=== PATIENT | female | born 2000 | race Caucasian/White ===

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

== ENCOUNTER 2020-02-10 20:49 | Emergency (ER) | payer BC, MEDICAID ==
--- NOTE | 2020-02-10 21:41 | EDM.PDOC ---
ED HPI GENERAL MEDICAL PROBLEM - General Chief Complaint: General Stated Complaint: 18 WKS PG TAILBONE PAIN Time Seen by Provider: 02/10/20 21:09 Source of Information: Reports: Patient, RN Notes Reviewed History Limitations: Reports: No Limitations - History of Present Illness INITIAL COMMENTS - FREE TEXT/NARRATIVE: Patient is a 19 year old female who presents to the ED for the evaluation of tailbone pain. The patient states that she is 18 weeks , and is a . The patient states that she broke her tailbone over 4 years ago. The patient states that she developed pain in the same area a few days ago and it seems to be worsening, and not getting better. She has been using 500mg Tylenol Q6H with little relief. She denies any trauma or falls, and states that there is no pain that shoots down her legs. She is not having any abdominal cramping or vaginal bleeding and her is going well. The patient denies any other sick like symptoms. The patient states that the pain is so bad that she is having a hard time getting comfortable, and has not been sleeping well. She notes the pain to be sharp in nature and is there all the time, and worsens with any sort of pressure applied to the area. Sacral Pain Score (Numeric/FACES): 10 - Related Data Allergies Allergy/AdvReac Type Severity Reaction Status Date / Time No Known Allergies Allergy Verified 02/10/20 20:56 Home Meds: Home Meds . 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: : 1 Para: 0 Psychiatric History: Reports: Depression, Mood Swings Endocrine/Metabolic History: Reports: Obesity/BMI 30+ - Past Surgical History HEENT Surgical History: Reports: Oral Surgery Social & Family History - Tobacco Use Smoking Status *Q: Former Smoker Years of Tobacco use: 6 Used Tobacco, but Quit: Yes Month/Year Tobacco Last Used: 14 weeks ago - Caffeine Use Caffeine Use: Reports: Coffee - Recreational Drug Use Recreational Drug Use: No - Living Situation & Occupation Living situation: Reports: Single, Other (with friends) 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 ED EXAM, GENERAL - Physical Exam Exam: See Below Exam Limited By: No Limitations General Appearance: Alert, WD/WN, No Apparent Distress Eye Exam: Bilateral Eye: EOMI, Normal Inspection, PERRL Ears: Normal External Exam Nose: Normal Inspection Throat/Mouth: Normal Inspection, Normal Lips, Normal Teeth, Normal Gums, Normal Oropharynx, Normal Voice, No Airway Compromise Head: Atraumatic, Normocephalic Neck: Normal Inspection Respiratory/Chest: No Respiratory Distress, Lungs Clear, Normal Breath Sounds, No Accessory Muscle Use, Chest Non-Tender Cardiovascular: Normal Peripheral Pulses, Regular Rate, Rhythm, No Murmur Peripheral Pulses: 3+: Radial (L), Radial (R) GI/Abdominal: Normal Bowel Sounds, Soft, Non-Tender, No Distention, No Mass Back Exam: Other (tenderness over tailbone, pt is guarding at this time d/t pain ) Extremities: Normal Inspection, Normal Capillary Refill Neurological: Alert, Oriented, Normal Cognition, No Motor/Sensory Deficits Psychiatric: Normal Affect, Normal Mood Skin Exam: Warm, Dry, Intact, Normal Color, No Rash Course - Vital Signs Last Recorded V/S: Last Vital Signs Temp 98.2 F 02/10/20 20:59 Pulse 108 H 02/10/20 20:59 Resp 16 02/10/20 20:59 BP 121/82 02/10/20 20:59 Pulse Ox 98 02/10/20 20:59 - Re-Assessments/Exams Free Text/Narrative Re-Assessment/Exam: 02/10/20 21:43 Patient presents to the ED for her tailbone pain. I will provide the patient with a few tablets of hydrocodone/acetaminophen 5/325 through [facility] at this time. I did caution that the patient should try to take 500mg Tylenol every 6 hours, but if the pain is not relieved by this, then she should take the stronger medication. The patient understands this and will follow up with her OB tomorrow. Departure - Departure Time of Disposition: 21:45 Disposition: Home, Self-Care 01 Condition: Fair Clinical Impression: Acute coccygeal pain - Discharge Information *PRESCRIPTION DRUG MONITORING PROGRAM REVIEWED*: Yes *COPY OF PRESCRIPTION DRUG MONITORING REPORT IN PATIENT MOSES: No Instructions: Tailbone Injury, [id number] Referrals: Hermann Carvalho MD [Primary Care Provider] - Forms: ED Department Discharge Additional Instructions: You were evaluated in the ED today for your tailbone pain. You may take 500 mg Tylenol every 6 hours as needed for further pain relief. If this does not provide you pain relief, then you can take the hydrocodone/ acetaminophen as directed. You were given a prescription for a strong pain medication, hydrocodone/ acetaminophen 5/325, please take 1 tab every 6 hours as needed for pain not relieved by Tylenol alone. Please note this medication does contain Tylenol in it, so do not take more than 4000 mg in a 24-hour time span. These medications can be addictive, so please take as few as possible to achieve adequate pain control. These meds can also be quite constipating, recommend that you increase your oral fluid intake and take a stool softener like MiraLAX while taking these medications. Do not drive while taking this medication. Please continue to try and use a donut type pillow or other pillows for cushioning to help provide further pain relief. Recommend you call your FUR BLOWING MACHINE ATTENDANT and follow-up with them tomorrow for further consideration regarding the use of these medications in . Please return to the ER at any time if symptoms change or worsen. Sepsis Event Note - Evaluation Sepsis Screening Result: No Definite Risk - Focused Exam Vital Signs: Vital Signs Temp Pulse Resp BP Pulse Ox 02/10/20 20:59 98.2 F 108 H 16 121/82 98 Date Exam was Performed: 02/10/20 Time Exam was Performed: 21:48
== END 2020-02-10 22:05 | disposition home or self-care (01) ==
LOC: JD.ED 20:49
CPT/HCPCS: 99283

== ENCOUNTER 2020-02-12 05:48 | Emergency (ER) | payer BC ==
[2020-02-12 05:59] VITALS: BP 110/75; PULSE 110
--- NOTE | 2020-02-12 06:26 | EDM.PDOC ---
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 She was seen here yesterday for tail bone pain. She was given something for pain. She said the pain has been there a few days. She is 18 weeks , G 1 with a LNMP in September or October. She last saw her DEALER ACCOUNTS INVESTIGATOR Dr Carvalho 8 weeks ago. She had an US done at that time and there was no problems. She did not fall and hurt her tail bone. She said this morning she woke up with blood in her bed and she thinks it came from her rectum. She has no abdominal pain, nausea, vomiting. She has no fever, chills, cough, congestion, runny nose, chest pain or shortness of breath. She has no medical problems. She has no history of hemorrhoids. Onset: Gradual Duration: Day(s): Location: Reports: Other ([facility]) Quality: Reports: Sharp Severity: Moderate Improves with: Reports: Immobilization Worsens with: Reports: Movement Context: Denies: Trauma Associated Symptoms: Reports: No Other Symptoms Buttock Pain Score (Numeric/FACES): 10 - Related Data Allergies Allergy/AdvReac Type Severity Reaction Status Date / Time No Known Allergies Allergy Verified 02/12/20 05:56 Home Meds: Home Meds Hydrocodone/Acetaminophen [Hydrocodon-Acetaminophen 5-325] 1 each PO ASDIRECTED PRN 02/12/20 [History] Past Medical History - Past Health History Medical/Surgical History: Denies Medical/Surgical History 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: Psychiatric History: Reports: Depression, Mood Swings Endocrine/Metabolic History: Reports: Obesity/BMI 30+ - Past Surgical History HEENT Surgical History: Reports: Oral Surgery Social & Family History - Tobacco Use Smoking Status *Q: Former Smoker Used Tobacco, but Quit: Yes Month/Year Tobacco Last Used: 09/2019 - Caffeine Use Caffeine Use: Reports: Coffee - Recreational Drug Use Recreational Drug Use: No - Living Situation & Occupation Living situation: Reports: Single, Other (with friends) 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[employer]) ED ROS GENERAL - Review of Systems Review Of Systems: See Below Constitutional: Reports: No Symptoms HEENT: Reports: No Symptoms Respiratory: Reports: No Symptoms Cardiovascular: Reports: No Symptoms Endocrine: Reports: No Symptoms GI/Abdominal: Reports: Other (Tailbone pain) : Reports: No Symptoms Musculoskeletal: Reports: No Symptoms Skin: Reports: No Symptoms Neurological: Reports: No Symptoms ED EXAM, GI/ABD - Physical Exam Exam: See Below Exam Limited By: No Limitations General Appearance: Alert, No Apparent Distress Ears: Normal External Exam Nose: Normal Inspection Head: Atraumatic, Normocephalic Neck: Normal Inspection Respiratory/Chest: No Respiratory Distress, Lungs Clear, Normal Breath Sounds Cardiovascular: Regular Rate, Rhythm, No Edema, No Murmur GI/Abdominal Exam: Soft, Non-Tender, No Organomegaly, No Mass Rectal (Female) Exam: Normal Exam Back Exam: Normal Inspection Course - Vital Signs Last Recorded V/S: Last Vital Signs Temp 97.4 F 02/12/20 05:57 Pulse 110 H 02/12/20 05:57 Resp 19 02/12/20 05:57 BP 110/75 02/12/20 05:57 Pulse Ox 96 02/12/20 05:57 - Orders/Labs/Meds Labs: Laboratory Tests 02/12/20 02/12/20 Range/Units 06:26 06:26 WBC 14.38 H (3.98-10.04) K/mm3 RBC 3.95 L (3.98-5.22) M/mm3 Hgb 11.7 (11.2-15.7) gm/dl Hct 34.4 (34.1-44.9) % MCV 87.1 (79.4-94.8) fl MCH 29.6 (25.6-32.2) pg MCHC 34.0 (32.2-35.5) g/dl RDW Std Deviation 40.0 (36.4-46.3) fL Plt Count 268 (182-369) K/mm3 MPV 10.0 (9.4-12.3) fl Neut % (Auto) 76.7 H (34.0-71.1) % Lymph % (Auto) 15.9 L (19.3-51.7) % Randolph % (Auto) 5.6 (4.7-12.5) % Eos % (Auto) 1.4 (0.7-5.8) Baso % (Auto) 0.1 (0.1-1.2) % Neut # (Auto) 11.03 H (1.56-6.13) K/mm3 Lymph # (Auto) 2.29 (1.18-3.74) K/mm3 Randolph # (Auto) 0.81 H (0.24-0.36) K/mm3 Eos # (Auto) 0.20 (0.04-0.36) K/mm3 Baso # (Auto) 0.01 (0.01-0.08) K/mm3 Manual Slide Review Normal smear Blood Type A POSITIVE - Re-Assessments/Exams Free Text/Narrative Re-Assessment/Exam: 02/12/20 06:25 I ordered labs and an US of the baby. 02/12/20 07:37 Her WBC is 14.38. Her Hgb is negative. 02/12/20 07:38 She is A positive. 02/12/20 07:40 Her US shows single intrauterine fetus currently transverse in lie. 19 weeks and 1 day. FHT are 143. Low lying posterior placenta. No other complicating process is appreciated by US at this time. No etiology for bleeding is seen. I called the clinic and Dr Carvalho could see her at 10am today. I will send her over there. On rectal exam I did not see any fissure or hemorrhoids. Departure - Departure Time of Disposition: 08:00 Disposition: Home, Self-Care 01 Condition: Good Clinical Impression: Rectal bleeding, Rectal pain - Discharge Information *PRESCRIPTION DRUG MONITORING PROGRAM REVIEWED*: Not Applicable *COPY OF PRESCRIPTION DRUG MONITORING REPORT IN PATIENT MOSES: Not Applicable Referrals: Hermann Carvalho MD [Primary Care Provider] - 1 Day Forms: ED Department Discharge Additional Instructions: Follow up with Dr Carvalho today at 10am. They want your there at 9:45am to register. Sepsis Event Note - Evaluation Sepsis Screening Result: No Definite Risk - Focused Exam Vital Signs: Vital Signs Temp Pulse Resp BP Pulse Ox 02/12/20 05:57 97.4 F 110 H 19 110/75 96 Date Exam was Performed: 02/12/20 Time Exam was Performed: 07:40
--- NOTE | 2020-02-12 07:38 | US ---
Limited obstetrical ultrasound: Multiple real-time images were obtained transabdominally. Comparison: No prior obstetrical imaging for current . Dates: Current ultrasound: SELVIN 07/10/20, gestational age 18 weeks 5 days presentation: Transverse with head to maternal right side Placenta: Posterior with no findings of placenta previa or placental abruption, placenta is low lying within 1.4 cm from the internal cervical os Amniotic fluid: JAILYN 14.33 cm Measurements: BPD: 4.33 cm - 19 weeks 1 day Head circumference: 15.41 cm - 18 weeks 3 days Abdominal circumference: 12.79 cm - 18 weeks 3 days Femur length: 2.77 cm - 18 weeks 4 days Estimated weight: 240 g (0 lbs. 8 oz.), estimated weight is 29th percentile for age by current ultrasound Heart rate: 143 bpm Cervical length: 3.7 cm Impression: 1. Single intrauterine fetus currently transverse in lie. Dates as noted above. 2. Low lying posterior placenta. 3. No other complicating process is appreciated by ultrasound at this time. No etiology for bleeding is seen. Diagnostic code #3 Study was dictated in MDT
== END 2020-02-12 08:05 | disposition home or self-care (01) ==
LOC: JD.ED 05:48
DX: O99.611 Diseases of the digestive system complicating pregnancy, first trimester (principal); K62.5 Hemorrhage of anus and rectum; O99.211 Obesity complicating pregnancy, first trimester; Z87.891 Personal history of nicotine dependence; Z3A.19 19 weeks gestation of pregnancy
CPT/HCPCS: 36415; 76815; 76815-26; 85025; 86900; 86901; 99283; 99284-25

== ENCOUNTER 2020-02-13 06:48 | Day surgery (SDC) | payer BC ==
--- NOTE | 2020-02-13 07:42 | PCM.PREANE ---
Preanesthetic Assessment - Anesthesia/Transfusion/Family Hx Anesthesia History: Prior Anesthesia Without Reaction Family History of Anesthesia Reaction: No - Review of Systems General: No Symptoms Pulmonary: No Symptoms Cardiovascular: No Symptoms Gastrointestinal: No Symptoms Neurological: No Symptoms Other: Reports: None - Physical Assessment NPO Status Date: 02/12/20 NPO Status Time: 20:00 Vital Signs: 121/71, 95, RR 8, SpO2 97%, T 97.6 Height: 1.63 m Weight: 99.6 kg ASA Class: 2 Mental Status: Alert & Oriented x3 Airway Class: Mallampati = 3 Dentition: Reports: Partial (upper left front incisor partial) Thyro-Mental Finger Breadths: 3 Mouth Opening Finger Breadths: 3 ROM/Head Extension: Full Lungs: Clear to Auscultation, Normal Respiratory Effort Cardiovascular: Regular Rate, Regular Rhythm - Allergies Allergies/Adverse Reactions: Allergies Allergy/AdvReac Type Severity Reaction Status Date / Time No Known Allergies Allergy Verified 02/12/20 05:56 - Acknowledgements Anesthesia Type Planned: General Anesthesia, MAC Pt an Appropriate Candidate for the Planned Anesthesia: Yes Alternatives and Risks of Anesthesia Discussed w Pt/Guardian: Yes Pt/Guardian Understands and Agrees with Anesthesia Plan: Yes PreAnesthesia Questionnaire - Past Health History Medical/Surgical History: Denies 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
[2020-02-13] MEDS ORDERED: Lidocaine 1% 4 ML ONE (07:53)
[2020-02-13] MEDS ORDERED: Propofol 200 MG/20 ML SDV ONE ×2 (07:53→07:55)
[2020-02-13] MEDS ORDERED: fentaNYL 100 MCG/2 ML SDV ONE (07:53)
[2020-02-13] MEDS ORDERED: Lidocaine 1%/Sod Bicarbonate in NS 8.4% 1 ML Syringe IDERM ONE (07:59)
[2020-02-13] MEDS ORDERED: Lactated Ringers 1,000 ML IV SCH (08:00)
[2020-02-13] MEDS: Bupivacaine 0.5%/EPINEPHrine 1:200,000 50 ML MDV ONE ×2 (08:17→08:26)
[2020-02-13] MEDS ORDERED: Ondansetron 4 MG/2 ML SDV ONE (08:20)
--- NOTE | 2020-02-13 08:51 | PCM48HPAN ---
Post Anesthesia Note - EVALUATION WITHIN 48HRS OF ANESTHETIC Vital Signs in Normal Range: Yes Patient Participated in Evaluation: Yes Respiratory Function Stable: Yes Airway Patent: Yes Cardiovascular Function Stable: Yes Hydration Status Stable: Yes Pain Control Satisfactory: Yes Nausea and Vomiting Control Satisfactory: Yes Mental Status Recovered: Yes Vital Signs: Last Vital Signs Temp 98.2 F 02/13/20 08:42 Pulse 111 H 02/13/20 08:42 Resp 16 02/13/20 08:42 BP 114/57 L 02/13/20 08:42 Pulse Ox 95 02/13/20 08:42
--- NOTE | 2020-02-13 08:57 | PCM.PRNOTE ---
- Free Text/Narrative Note: Date: 02/13/2020 Operation: incision and drainage of pilonidal abscess Surgeon: Mitchel Lockett MD Findings: single opening at cleft along midline with purulent drainage. No significant hair collection noted within abscess cavity. Track was unroofed and cavity opened and curretted. Dilute phenol solution was applied to wound. Detailed Report: The patient was taken to the OR and placed prone. Time out was performed and monitored anesthesia care initiated. Once the patient was adequately sedated, the buttocks were splayed laterally using silk tape, providing good exposure. The gluteal cleft was prepped with iodine solution and drape in usual fashion. 30 cc 0.5% marcaine with epinephrine was injected at the area of concern. A lacrimal probe was inserted at the visible pit, which tracked anteriorly and superiorly to an abscess cavity. Skin and soft tissue were divided over the probe and the cavity was then visible. All tracts to the main cavity were unroofed. There was minimal pus and fine, short light colored hair at the skin along the incision. The tissue lining the wound was curretted, and hemostasis achieved with monopolar energy. Devitalized and fibrinous tissue was debrided. A dilute mix of phenol, ~10%, was placed in the wound and then dried up with gauze. The wound was packed with dry kerlix and dressed with ABD pad and tape. The patient tolerated the procedure well. Mitchel Lockett MD General Surgery
[2020-02-13 09:11] VITALS: BP 112/63; PULSE 90
[2020-02-13] MEDS ORDERED: Loratadine 10 MG Tab PO ONE (10:40)
== END 2020-02-13 09:44 | disposition home or self-care (01) ==
LOC: JD.SDS 06:48
PROVIDERS: ATTEND Surgery
DX: O99.712 Diseases of the skin and subcutaneous tissue complicating pregnancy, second trimester (principal); L05.01 Pilonidal cyst with abscess; O99.89 Other specified diseases and conditions complicating pregnancy, childbirth and the puerperium; R82.71 Bacteriuria; O99.332 Smoking (tobacco) complicating pregnancy, second trimester; F17.210 Nicotine dependence, cigarettes, uncomplicated; Z3A.19 19 weeks gestation of pregnancy
CPT/HCPCS: 10080; J2001; J2405; J2704; J3010; J3490; J7120

== ENCOUNTER 2020-02-19 11:34 | Emergency (ER) | payer BC, MEDICAID ==
[2020-02-19] MEDS ORDERED: HYDROmorphone 0.5 MG/0.5 ML Syringe IM ONE (12:03)
[2020-02-19] MEDS ORDERED: Lidocaine 2% Jelly 10 ML Urojet MUCMEM ONE (12:04)
--- NOTE | 2020-02-19 12:13 | EDM.PDOC ---
ED HPI GENERAL MEDICAL PROBLEM - General Chief Complaint: Wound Recheck Stated Complaint: POST SURGERY COMPLICATION Time Seen by Provider: 02/19/20 11:46 Source of Information: Reports: Patient, Old Records (surgical report), RN Notes Reviewed History Limitations: Reports: No Limitations - History of Present Illness INITIAL COMMENTS - FREE TEXT/NARRATIVE: Patient is a 19-year-old female who presents to the ED for wound management. Patient notes that she is 20 weeks . She states that she had a pilonidal cyst removed near her tailbone [address] Mitchel Lockett. The patient states that she is to do wound packing every 12 hours until the wound heals, and she went to remove the packing this morning, and it was painful , so she could not remove it. She tried to call the clinic and states that no one answered. She states that the pain management that she has is not working well. She denies any other sick like symptoms, no fever/chills, cough/SOB, chest discomfort. 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 Psychiatric History: Reports: Depression, Mood Swings Endocrine/Metabolic History: Reports: Obesity/BMI 30+ - Past Surgical History HEENT Surgical History: Reports: Oral Surgery Musculoskeletal Surgical History: Reports: Other (See Below) (pliondal cyst removal 02/13/20) Social & Family History - Tobacco Use Smoking Status *Q: Never Smoker - Caffeine Use Caffeine Use: Reports: Coffee - Recreational Drug Use Recreational Drug Use: No - Living Situation & Occupation Living situation: Reports: Single, Other (with friends) 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 ED EXAM, SKIN/RASH Exam: See Below Exam Limited By: No Limitations General Appearance: Alert, WD/WN, No Apparent Distress Respiratory/Chest: No Respiratory Distress, Lungs Clear, Normal Breath Sounds, No Accessory Muscle Use, Chest Non-Tender Cardiovascular: Normal Peripheral Pulses, Regular Rate, Rhythm, No Murmur GI/Abdominal: Normal Bowel Sounds, Soft, Non-Tender, No Distention, No Mass Back Exam: Normal Inspection, Full Range of Motion Extremities: Normal Inspection, Normal Capillary Refill Neurological: Alert, Oriented, Normal Cognition, No Motor/Sensory Deficits Psychiatric: Normal Affect, Normal Mood Skin: Warm, Dry, Normal Color, No Rash, Wound/Incision (healing surgical wound to superior gluteal cleft, wound packing in place. no surrounding erythema or foul smells or drainage.) Course - Vital Signs Last Recorded V/S: Last Vital Signs Temp 98.8 F 02/19/20 11:45 Pulse 100 02/19/20 11:45 Resp 16 02/19/20 11:45 BP 142/84 H 02/19/20 11:45 Pulse Ox 96 02/19/20 11:45 - Orders/Labs/Meds Orders: Active Orders 24 hr Category Date Time Status Wound Care [RC] ASDIRECTED Care 02/19/20 11:59 Active Meds: Medications Discontinued Medications Generic Name Dose Route Start Last Admin Trade Name Freq PRN Reason Stop Dose Admin Hydromorphone HCl 0.5 mg 02/19/20 12:03 Dilaudid IM 02/19/20 12:04 ONETIME ONE Lidocaine HCl 10 ml 02/19/20 12:04 02/19/20 12:13 Xylocaine 2% Jelly MUCMEM 02/19/20 12:05 10 ml ONETIME ONE Administration - Re-Assessments/Exams Free Text/Narrative Re-Assessment/Exam: 02/19/20 12:19 RN was able to remove the packing and she will re-pack the area as the patient had been directed. I will have her follow up with her surgeon for a re-check of the wound. Departure - Departure Time of Disposition: 12:20 Disposition: Home, Self-Care 01 Condition: Good Clinical Impression: Encounter for surgical wound dressing change - Discharge Information *PRESCRIPTION DRUG MONITORING PROGRAM REVIEWED*: No *COPY OF PRESCRIPTION DRUG MONITORING REPORT IN PATIENT MOSES: No Instructions: How to Change Your Wound Dressing, [id number] Referrals: Hermann Carvalho MD [Primary Care Provider] - Forms: ED Department Discharge Additional Instructions: You were seen in the ER today regarding your surgical wound dressing change. This was done by nursing staff, and you were given more supplies to continue doing this at home. Please continue to do so until told otherwise by your surgeon. Highly and strongly recommend that you follow-up with your surgeon, sometime later this afternoon or tomorrow for a possible recheck of the wound to make sure there is no obvious sign of infections. At today's visit the surrounding area was not reddened, or had any foul-looking drainage. Please return to the ER at any time if symptoms change or worsen. Sepsis Event Note - Evaluation Sepsis Screening Result: No Definite Risk - Focused Exam Vital Signs: Vital Signs Temp Pulse Resp BP Pulse Ox 02/19/20 11:45 98.8 F 100 16 142/84 H 96 Date Exam was Performed: 02/19/20 Time Exam was Performed: 12:15 - My Orders Last 24 Hours: My Active Orders 02/19/20 11:59 Wound Care [RC] ASDIRECTED - Assessment/Plan Last 24 Hours: My Active Orders 02/19/20 11:59 Wound Care [RC] ASDIRECTED
[2020-02-19 13:00] VITALS: BP 115/84; PULSE 130
== END 2020-02-19 12:35 | disposition home or self-care (01) ==
LOC: JD.ED 11:34
DX: Z48.817 Encounter for surgical aftercare following surgery on the skin and subcutaneous tissue (principal); O99.212 Obesity complicating pregnancy, second trimester; Z68.32 Body mass index [BMI] 32.0-32.9, adult; Z3A.20 20 weeks gestation of pregnancy
CPT/HCPCS: 99282; 99283

== ENCOUNTER 2020-07-08 15:47 | Inpatient (IN) | payer BC, MEDICAID ==
[2020-07-08] MEDS ORDERED: Sodium Chloride 0.9% 10 ML Syringe FLUSH PRN (20:03)
[2020-07-08] MEDS ORDERED: Ondansetron 4 MG/2 ML SDV IVPUSH PRN (20:03)
[2020-07-08] MEDS ORDERED: Nalbuphine 10 MG/ML Syringe IVPUSH PRN (20:03)
--- NOTE | 2020-07-08 20:03 | PCM.LDHP ---
<Mckenna Batista - Last Filed: 07/08/20 19:48> L&D History of Present Illness - General Date of Service: 07/08/20 Admit Problem/Dx: Patient Status Order with Admit Dx/Problem 07/08/20 15:56 Patient Status [ADT] Routine Admission Diagnosis/Problem Admission Diagnosis/Problem 07/08/20 19:48 Celina Crews is a 19 year old female who presents to Labor and Delivery with gestational hypertension. She is 39 weeks and 3 days gestational age with an SELVIN of 07/12/2020. 07/08/20 19:52 Source of Information: Patient History Limitations: Reports: No Limitations - History of Present Illness Introduction:: Celina Crews is a 19 year old female who presents to Labor and Delivery with gestational hypertension. She is 39 weeks and 3 days gestational age with an SELVIN of 07/12/2020. LMP was 10/08/2019. Patient states baby is active and moving. She denies any contractions, pain or pressure currently. Celina admits to recent hypertension in the last week of . She had a cyst removed on her lower back in February. She has otherwise had a normal . She denies headache, visual disturbances, tinnitus, congestion, sore throat, shortness of breath, chest pain, palpitations, nausea, vomiting, constipation, diarrhea, dysuria, anemia, depression or anxiety. 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 SELVIN of 07/12/2020 as determined by ultrasound on and supported by her LMP being 10/08/2019. Patient had menarche at 12. Cycles were regular with bleeding being heavy. She states she would have to change tampons every 2-3 hours. She has had no previous abnormal pap smears. course has been relatively unremarkable other than previously stated in HPI. She was seen early in at approximately 10 weeks gestation. She had irregular visits. She states she was unaware she should been seen at regular intervals throughout course. Weight gain was from 229 pounds to 252 pounds. Vital signs were stable up until last week of . Blood pressures ranged from 134/90 to 134/92 without features of preeclampsia. She was send to L&D to watch BP. Fundal height growth was appropriate throughout course. Patient had her diphtheria pertussis tetanus immunization on 05/03/2020. She plans to breast feed. She elected to have genetic testing done which came back for low risk of trisomy 13, 18 or 21. Group B strep screen was negative. She desires an epidural in labor. She is rubella immune. Influenza vaccine was administered on 12/17/2019. Laboratory testing showed blood to be A positive with a negative antibody screen. Hemoglobin is 13.1 g/dL and platelets are 340,000 during her initial labs. She is rubella immune. RPR was nonreactive. Gonorrhea and Chlamydia were negative. HIV and Hepatitis B surface antigen were both negative. Urine culture showed E. Coli and was treated appropriately. Second trimester labs showed a hemoglobin of 12.1 g/dL. Platelets were 296,000 and diabetic screen was within normal limits being 114. Group B strep was negative. Assessment/ Plan: Group B strep negative Patient desires epidural Patient plans to breast feed Rubella titers show immunity Anticipate normal spontaneous vaginal delivery Support breast feeding decision Epidural as needed Routine labor care orders will be placed. The procedure, risks and benefits were discussed and the patient and partner agreed to proceed. 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 She states that her exercise in was working. She states she maintained a healthy diet throughout . H&P Review of Systems - Review of Systems: Review Of Systems: See Below General: Denies: Fever, Chills, Night Sweats, Weight Loss HEENT: Denies: Headaches, Hearing Changes, Rhinitis, Post Nasal Drip, Sinus Congestion, Sore Throat Pulmonary: Denies: Shortness of Breath, Cough, Hemoptysis Cardiovascular: Denies: Chest Pain, Palpitations, Dyspnea on Exertion, Edema Gastrointestinal: Denies: Constipation, Diarrhea, Difficulty Swallowing, Nausea, Vomiting Genitourinary: Denies: Dysuria, Frequency, Burning, Pain, Urgency, Hematuria Musculoskeletal: Denies: Shoulder Pain, Arm Pain, Back Pain, Muscle Pain Skin: Denies: Pruritis, Rash, Lesions, Lumps Psychiatric: Denies: Depression, Anxiety, Agitation, Suicidal Ideation, Homicidal Ideation Neurological: Denies: Headache, Numbness, Paresthesia, Tingling, Tremors Hematologic/Lymphatic: Denies: Anemia, Easy Bleeding, Easy Bruising Immunologic: Denies: Environmental Allergy, Seasonal Allergy L&D Exam - Exam Exam: See Below - Vital Signs Vital Signs: Last Vital Signs Temp 97.4 F 07/08/20 15:56 Pulse 99 07/08/20 15:56 Resp 14 07/08/20 15:56 BP 132/94 H 07/08/20 15:56 Pulse Ox 98 07/08/20 15:56 Weight: 114.441 kg - OB Specific Movement: Active Heart Tones: Present - Exam General: Alert, Oriented, Mild Distress HEENT: Hearing Intact Neck: Supple, Trachea Midline Lungs: Clear to Auscultation, Normal Respiratory Effort Cardiovascular: Regular Rate, Regular Rhythm, Normal S1, Normal S2 GI/Abdominal Exam: Soft, Non-Tender, Other (Gravid) Extremities: Normal Range of Motion, Pedal Edema (mild. ) Skin: Warm, Dry, Intact Psychiatric: Alert - Patient Data Lab Results Last 24 hrs: Laboratory Results - last 24 hr 07/08/20 07/08/20 07/08/20 Range/Units 16:08 16:18 16:18 WBC 11.21 H (3.98-10.04) K/mm3 RBC 4.39 (3.98-5.22) M/mm3 Hgb 12.7 (11.2-15.7) gm/dl Hct 37.2 (34.1-44.9) % MCV 84.7 (79.4-94.8) fl MCH 28.9 (25.6-32.2) pg MCHC 34.1 (32.2-35.5) g/dl RDW Std Deviation 40.6 (36.4-46.3) fL Plt Count 324 (182-369) K/mm3 MPV 10.3 (9.4-12.3) fl Neut % (Auto) 71.6 H (34.0-71.1) % Lymph % (Auto) 21.9 (19.3-51.7) % Sully % (Auto) 5.7 (4.7-12.5) % Eos % (Auto) 0.6 L (0.7-5.8) Baso % (Auto) 0.1 (0.1-1.2) % Neut # (Auto) 8.03 H (1.56-6.13) K/mm3 Lymph # (Auto) 2.45 (1.18-3.74) K/mm3 Sully # (Auto) 0.64 H (0.24-0.36) K/mm3 Eos # (Auto) 0.07 (0.04-0.36) K/mm3 Baso # (Auto) 0.01 (0.01-0.08) K/mm3 Sodium 137 (136-145) mEq/L Potassium 4.0 (3.5-5.1) mEq/L Chloride 102 (98-107) mEq/L Carbon Dioxide 22 (21-32) mEq/L Anion Gap 17.0 H (5-15) BUN 9 (7-18) mg/dL Creatinine 1.0 (0.55-1.02) mg/dL Est Cr Clr Drug Dosing 78.14 mL/min Estimated GFR (MDRD) > 60 (>60) mL/min BUN/Creatinine Ratio 9.0 L (14-18) Glucose 72 L (74-106) mg/dL Calcium 8.8 (8.5-10.1) mg/dL Total Bilirubin 0.2 (0.2-1.0) mg/dL AST 18 (15-37) U/L ALT 16 (14-59) U/L Alkaline Phosphatase 108 (46-116) U/L Total Protein 7.4 (6.4-8.2) g/dl Albumin 3.0 L (3.4-5.0) g/dl Globulin 4.4 gm/dL Albumin/Globulin Ratio 0.7 L (1-2) Ur Random Creatinine 355.5 H (30.0-125.0) mg/dL U Random Total Protein 18.3 H (0.0-11.8) mg/dL Protein/Creatinin Ratio 51.5 (0-149) mg/g Result Diagrams: 07/08/20 16:18 07/08/20 16:18 Problem List Initiated/Reviewed/Updated: Yes Orders Last 24hrs: Active Orders 24 hr Category Date Time Status Patient Status [ADT] Routine ADT 07/08/20 15:56 Active Non Stress Test [RC] PER UNIT ROUTINE Care 07/08/20 15:56 Active Vital Signs [RC] PER UNIT ROUTINE Care 07/08/20 15:56 Active Regular Diet [DIET] Diet 07/08/20 Breakfast Active PROTEIN/CREATININE RATIO,URINE [URCHEM] Stat Lab 07/08/20 16:08 Ordered Resuscitation Status Routine Resus Stat 07/08/20 15:56 Ordered <Hermann Carvalho - Last Filed: 07/08/20 21:04> L&D History of Present Illness - General Admit Problem/Dx: Patient Status Order with Admit Dx/Problem 07/08/20 15:56 Patient Status [ADT] Routine 07/08/20 20:04 Patient Status [ADT] Routine Admission Diagnosis/Problem Admission Diagnosis/Problem Past Medical History Gastrointestinal History: Reports: Other (See Below) (Pilonidal cyst with incision and drainage on 03/04/2020) - Past Surgical History GI Surgical History: Reports: Other (See Below) (Incision and drainage of pilonidal cyst) L&D Exam - Vital Signs Vital Signs: Last Vital Signs Temp 36.3 C 07/08/20 15:56 Pulse 99 07/08/20 15:56 Resp 14 07/08/20 15:56 BP 132/94 H 07/08/20 15:56 Pulse Ox 98 07/08/20 15:56 - OB Specific Contraction Duration (sec): 0 Contraction Frequency (min): 0 Heart Tones per Min: 150 (+15 x 15 accelerations, one uncertain type of deceleration at 19:59) Heart Rate (FHR) Variability: Moderate (6-25 bmp) Presentation: Vertex Estimated Weight: 7.5 to 8 pounds by Oleksandr's - West Score West Score Cervix Position: Midposition West Score Consistency: Soft West Score Effacement: >80% (80%) West Score Dilation: 3-4 cm (3 cm) West Score Infant's Station: -3 West Score Total: 8 - Exam Genitourinary: Normal external exam, Other (18 Macedonian Chavez bulb placed and filled with 40 cc of sterile saline and came through the cervix with additional dilation of the cervix.) Psychiatric: Alert, Normal Affect, Normal Mood - Patient Data Lab Results Last 24 hrs: Laboratory Results - last 24 hr 07/08/20 07/08/20 07/08/20 Range/Units 16:08 16:18 16:18 WBC 11.21 H (3.98-10.04) K/mm3 RBC 4.39 (3.98-5.22) M/mm3 Hgb 12.7 (11.2-15.7) gm/dl Hct 37.2 (34.1-44.9) % MCV 84.7 (79.4-94.8) fl MCH 28.9 (25.6-32.2) pg MCHC 34.1 (32.2-35.5) g/dl RDW Std Deviation 40.6 (36.4-46.3) fL Plt Count 324 (182-369) K/mm3 MPV 10.3 (9.4-12.3) fl Neut % (Auto) 71.6 H (34.0-71.1) % Lymph % (Auto) 21.9 (19.3-51.7) % Sully % (Auto) 5.7 (4.7-12.5) % Eos % (Auto) 0.6 L (0.7-5.8) Baso % (Auto) 0.1 (0.1-1.2) % Neut # (Auto) 8.03 H (1.56-6.13) K/mm3 Lymph # (Auto) 2.45 (1.18-3.74) K/mm3 Sully # (Auto) 0.64 H (0.24-0.36) K/mm3 Eos # (Auto) 0.07 (0.04-0.36) K/mm3 Baso # (Auto) 0.01 (0.01-0.08) K/mm3 Sodium 137 (136-145) mEq/L Potassium 4.0 (3.5-5.1) mEq/L Chloride 102 (98-107) mEq/L Carbon Dioxide 22 (21-32) mEq/L Anion Gap 17.0 H (5-15) BUN 9 (7-18) mg/dL Creatinine 1.0 (0.55-1.02) mg/dL Est Cr Clr Drug Dosing 78.14 mL/min Estimated GFR (MDRD) > 60 (>60) mL/min BUN/Creatinine Ratio 9.0 L (14-18) Glucose 72 L (74-106) mg/dL Calcium 8.8 (8.5-10.1) mg/dL Total Bilirubin 0.2 (0.2-1.0) mg/dL AST 18 (15-37) U/L ALT 16 (14-59) U/L Alkaline Phosphatase 108 (46-116) U/L Total Protein 7.4 (6.4-8.2) g/dl Albumin 3.0 L (3.4-5.0) g/dl Globulin 4.4 gm/dL Albumin/Globulin Ratio 0.7 L (1-2) Ur Random Creatinine 355.5 H (30.0-125.0) mg/dL U Random Total Protein 18.3 H (0.0-11.8) mg/dL Protein/Creatinin Ratio 51.5 (0-149) mg/g Result Diagrams: 07/08/20 16:18 07/08/20 16:18 - Problem List (1) 39 weeks gestation of SNOMED Code(s): 83695621 ICD Code: Z3A.39 - 39 WEEKS GESTATION OF Status: Acute Current Visit: Yes (2) Gestational hypertension SNOMED Code(s): 798069095 ICD Code: O13.9 - GESTATIONAL HTN W/O SIGNIFICANT PROTEINURIA, UNSP TRIMESTER Status: Acute Current Visit: Yes Orders Last 24hrs: Active Orders 24 hr Category Date Time Status Patient Status [ADT] Routine ADT 07/08/20 20:04 Active Activity as Tolerated [RC] PFP Care 07/08/20 20:03 Active Communication Order [RC] ASDIRECTED Care 07/08/20 20:03 Active Non Stress Test [RC] PER UNIT ROUTINE Care 07/08/20 15:56 Active Notify Provider [RC] PFP Care 07/08/20 20:03 Active Notify Provider [RC] PRN Care 07/08/20 20:03 Active Peripheral IV Care [RC] . DIRECTED Care 07/08/20 20:04 Active Pump Management, Intrathecal [RC] ASDIRECTED Care 07/08/20 20:05 Active Vital Signs [RC] PER UNIT ROUTINE Care 07/08/20 15:56 Active Regular Diet [DIET] Diet 07/08/20 Breakfast Active BLOOD BANK HOLD SPECIMEN [BBK] Stat Lab 07/08/20 20:33 Received CORONAVIRUS COVID-19 RAPID [MOLEC] Stat Lab 07/08/20 20:33 Received PROTEIN/CREATININE RATIO,URINE [URCHEM] Stat Lab 07/08/20 16:08 Ordered RAPID PLASMA REAGIN,RPR [CHEM] Routine Lab 07/08/20 20:30 Received Lactated Ringers [Ringers, Lactated] 1,000 ml Med 07/08/20 20:15 Active IV ASDIRECTED Nalbuphine [Nubain] Med 07/08/20 20:03 Active 10 mg IVPUSH Q2H PRN Ondansetron [Zofran] Med 07/08/20 20:03 Active 4 mg IVPUSH Q4H PRN Oxytocin/Lactated Ringers [Pitocin in LR 10 Units/1,000 Med 07/08/20 20:15 Active ML] 10 unit in 1,000 ml IV TITRATE Sodium Chloride 0.9% [Saline Flush] Med 07/08/20 20:03 Active 10 ml FLUSH ASDIRECTED PRN Electronic Heart Tones Ext w TOCO [WOMSER] Oth 07/08/20 20:03 Ordered Routine Electronic Heart Tones Internal [WOMSER] Per Unit Oth 07/08/20 20:03 Ordered Routine Peripheral IV Insertion Adult [OM.PC] Routine Oth 07/08/20 20:03 Ordered Resuscitation Status Routine Resus Stat 07/08/20 15:56 Ordered Medication Orders Lactated Ringer's (Ringers, Lactated) 1,000 mls @ 100 mls/hr IV ASDIRECTED AVIS Oxytocin/Lactated Ringer's (Pitocin In Lr 10 Units/1,000 Ml) 10 unit in 1,000 mls @ 12 mls/hr IV TITRATE AVIS; Protocol Nalbuphine HCl (Nubain) 10 mg IVPUSH Q2H PRN PRN Reason: Pain Ondansetron HCl (Zofran) 4 mg IVPUSH Q4H PRN PRN Reason: Nausea/Vomiting Sodium Chloride (Saline Flush) 10 ml FLUSH ASDIRECTED PRN PRN Reason: Keep Vein Open Assessment/Plan Comment:: Celina Crews is a 19-year-old G1, P0 at 39 weeks 3 days (SELVIN 07/12/2020) who presents for induction of labor in the setting of gestational hypertension Refer to observation for medically indicated induction of labor with gestational hypertension Start Pitocin for induction of labor Continuous monitoring IV in place and have Lactated Ringer's at 125 ml/hr May have small amounts of regular diet Activity as tolerated May have epidural as desired Plans to breast-feed after delivery Continue close monitoring of her vitals for any severe features of preeclampsia or severe range blood pressures that may need treatment Anticipate vaginal delivery unless otherwise indicated I have seen and evaluated the patient with the PA student and agree with the note as above with changes noted. Hermann Carvalho MD 9:04 PM 07/08/2020
[2020-07-08] MEDS: Lactated Ringers 1,000 ML IV SCH (21:03)
[2020-07-08] MEDS: Oxytocin/Lactated Ringers 10 UNIT/1,000 ML BAG IV SCH (21:04)
[2020-07-09] MEDS ORDERED: Bupivacaine 0.25% 10 ML SDV ONE
[2020-07-09] MEDS ORDERED: ePHEDrine Sulfate/0.9% NaCl/Pf 25 MG/5 ML SYRINGE IV ONE
[2020-07-09] MEDS: Lactated Ringers 1,000 ML IV SCH ×5 (04:43→20:48)
[2020-07-09] MEDS ORDERED: fentaNYL 100 MCG/2 ML SDV EPIDUR PRN (06:24)
[2020-07-09] MEDS ORDERED: Ondansetron 4 MG/2 ML SDV IVPUSH PRN ×2 (06:24→21:54)
[2020-07-09] MEDS ORDERED: ePHEDrine 50 MG/ML SDV IVPUSH PRN ×2 (06:24→21:54)
--- NOTE | 2020-07-09 06:27 | PCM.PREANE ---
Preanesthetic Assessment - Procedure Proposed Procedure: Epidural - Anesthesia/Transfusion/Family Hx Anesthesia History: Prior Anesthesia Without Reaction Family History of Anesthesia Reaction: No Transfusion History: No Prior Transfusion(s) Intubation History: Unknown - Review of Systems General: No Symptoms Pulmonary: No Symptoms (Smoker:quit with 4-5 cig/day times 9 years.) Cardiovascular: No Symptoms (Gestational HTN) Gastrointestinal: No Symptoms Neurological: No Symptoms Other: Reports: Depression - Physical Assessment NPO Status Date: 07/09/20 NPO Status Time: 07:30 Vital Signs: Last Vital Signs Temp 36.3 C 07/08/20 15:56 Pulse 99 07/08/20 15:56 Resp 14 07/08/20 15:56 BP 132/94 H 07/08/20 15:56 Pulse Ox 98 07/08/20 15:56 Height: 1.63 m Weight: 114.305 kg ASA Class: 2 Mental Status: Alert & Oriented x3 Airway Class: Mallampati = 2 Dentition: Reports: Normal Dentition (multiple piercings noted: cheeks, lower lips, tongue/patient advised and educated on rationale of removing piercings to avoid potential kaiser in the event a is warranted.), Implants (left front movable tooth), Caries Thyro-Mental Finger Breadths: 3 Mouth Opening Finger Breadths: 3 ROM/Head Extension: Full Lungs: Clear to Auscultation, Normal Respiratory Effort Cardiovascular: Regular Rate, Regular Rhythm, No Murmurs - Lab Values: Laboratory Last Values WBC 11.21 K/mm3 (3.98-10.04) H 07/08/20 16:18 RBC 4.39 M/mm3 (3.98-5.22) 07/08/20 16:18 Hgb 12.7 gm/dl (11.2-15.7) 07/08/20 16:18 Hct 37.2 % (34.1-44.9) 07/08/20 16:18 MCV 84.7 fl (79.4-94.8) 07/08/20 16:18 MCH 28.9 pg (25.6-32.2) 07/08/20 16:18 MCHC 34.1 g/dl (32.2-35.5) 07/08/20 16:18 RDW Std Deviation 40.6 fL (36.4-46.3) 07/08/20 16:18 Plt Count 324 K/mm3 (182-369) 07/08/20 16:18 MPV 10.3 fl (9.4-12.3) 07/08/20 16:18 Neut % (Auto) 71.6 % (34.0-71.1) H 07/08/20 16:18 Lymph % (Auto) 21.9 % (19.3-51.7) 07/08/20 16:18 Curry % (Auto) 5.7 % (4.7-12.5) 07/08/20 16:18 Eos % (Auto) 0.6 (0.7-5.8) L 07/08/20 16:18 Baso % (Auto) 0.1 % (0.1-1.2) 07/08/20 16:18 Neut # (Auto) 8.03 K/mm3 (1.56-6.13) H 07/08/20 16:18 Lymph # (Auto) 2.45 K/mm3 (1.18-3.74) 07/08/20 16:18 Curry # (Auto) 0.64 K/mm3 (0.24-0.36) H 07/08/20 16:18 Eos # (Auto) 0.07 K/mm3 (0.04-0.36) 07/08/20 16:18 Baso # (Auto) 0.01 K/mm3 (0.01-0.08) 07/08/20 16:18 Sodium 137 mEq/L (136-145) 07/08/20 16:18 Potassium 4.0 mEq/L (3.5-5.1) 07/08/20 16:18 Chloride 102 mEq/L (98-107) 07/08/20 16:18 Carbon Dioxide 22 mEq/L (21-32) 07/08/20 16:18 Anion Gap 17.0 (5-15) H 07/08/20 16:18 BUN 9 mg/dL (7-18) 07/08/20 16:18 Creatinine 1.0 mg/dL (0.55-1.02) 07/08/20 16:18 Est Cr Clr Drug Dosing 78.14 mL/min 07/08/20 16:18 Estimated GFR (MDRD) > 60 mL/min (>60) 07/08/20 16:18 BUN/Creatinine Ratio 9.0 (14-18) L 07/08/20 16:18 Glucose 72 mg/dL (74-106) L 07/08/20 16:18 Calcium 8.8 mg/dL (8.5-10.1) 07/08/20 16:18 Total Bilirubin 0.2 mg/dL (0.2-1.0) 07/08/20 16:18 AST 18 U/L (15-37) 07/08/20 16:18 ALT 16 U/L (14-59) 07/08/20 16:18 Alkaline Phosphatase 108 U/L (46-116) 07/08/20 16:18 Total Protein 7.4 g/dl (6.4-8.2) 07/08/20 16:18 Albumin 3.0 g/dl (3.4-5.0) L 07/08/20 16:18 Globulin 4.4 gm/dL 07/08/20 16:18 Albumin/Globulin Ratio 0.7 (1-2) L 07/08/20 16:18 Ur Random Creatinine 355.5 mg/dL (30.0-125.0) H 07/08/20 16:08 U Random Total Protein 18.3 mg/dL (0.0-11.8) H 07/08/20 16:08 Protein/Creatinin Ratio 51.5 mg/g (0-149) 07/08/20 16:08 RPR Non-reactive (NONREACTIVE) 07/08/20 20:30 COVID-19 (ALEXX) Negative (NEGATIVE) 07/08/20 20:33 Above labs reviewed and noted and within acceptable ranges to proceed with epidural if desired. - Allergies Allergies/Adverse Reactions: Allergies Allergy/AdvReac Type Severity Reaction Status Date / Time No Known Allergies Allergy Verified 07/08/20 15:56 - Anesthesia Plan Pre-Op Medication Ordered: None - Acknowledgements Anesthesia Type Planned: Epidural Pt an Appropriate Candidate for the Planned Anesthesia: Yes Alternatives and Risks of Anesthesia Discussed w Pt/Guardian: Yes Pt/Guardian Understands and Agrees with Anesthesia Plan: Yes PreAnesthesia Questionnaire - Past Health History Medical/Surgical History: Denies Medical/Surgical History Gastrointestinal History: Reports: Other (See Below) (Pilonidal cyst with incision and drainage on 03/04/2020) 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: Psychiatric History: Reports: Depression, Mood Swings Endocrine/Metabolic History: Reports: Obesity/BMI 30+ - Past Surgical History GI Surgical History: Reports: Other (See Below) (Incision and drainage of pilonidal cyst) - SUBSTANCE USE Smoking Status *Q: Former Smoker Tobacco Use Within Last Twelve Months: Cigarettes Recreational Drug Use History: No - HOME MEDS Home Medications: Home Meds Mv-Mn/Iron/FA/Herbal/Digestive [ One Tablet] 1 each PO DAILY 07/08/20 [History] - CURRENT (IN HOUSE) MEDS Current Meds: Current Medications Ephedrine Sulfate (Ephedrine Sulfate) 5 mg IVPUSH ASDIRECTED PRN PRN Reason: Hypotension Fentanyl (Sublimaze) 100 mcg EPIDUR Q3H PRN PRN Reason: Pain Fentanyl/Bupivacaine HCl (Fentanyl/Bupivacaine/Ns 2 Mcg-0.125% 100 Ml) 100 ml EPIDUR ASDIRECTED AVIS Lactated Ringer's (Ringers, Lactated) 1,000 mls @ 100 mls/hr IV ASDIRECTED AVIS Last Admin: 07/09/20 04:43 Dose: 100 mls/hr Documented by: Oxytocin/Lactated Ringer's (Pitocin In Lr 10 Units/1,000 Ml) 10 unit in 1,000 mls @ 12 mls/hr IV TITRATE AVIS; Protocol Last Admin: 07/08/20 21:04 Dose: 2 munits/min, 12 mls/hr Documented by: Phenylephrine HCl 1 mg/ Sodium (Chloride) 10.1 mls @ 1 mls/sec IV TITRATE AVIS; Protocol Nalbuphine HCl (Nubain) 10 mg IVPUSH Q2H PRN PRN Reason: Pain Ondansetron HCl (Zofran) 4 mg IVPUSH Q4H PRN PRN Reason: Nausea/Vomiting Ondansetron HCl (Zofran) 4 mg IVPUSH ONETIME PRN PRN Reason: Nausea/Vomiting Sodium Chloride (Saline Flush) 10 ml FLUSH ASDIRECTED PRN PRN Reason: Keep Vein Open
[2020-07-09] MEDS ORDERED: Phenylephrine 1 MG in Sodium Chloride 0.9% 10 ML IV SCH ×2 (06:30→22:00)
--- NOTE | 2020-07-09 07:29 | PCM.PNLD ---
Labor Progress Note - VS & Meds Vital Signs: Last Vital Signs Temp 36.3 C 07/08/20 15:56 Pulse 99 07/08/20 15:56 Resp 14 07/08/20 15:56 BP 132/94 H 07/08/20 15:56 Pulse Ox 98 07/08/20 15:56 Active Medications: Current Medications Ephedrine Sulfate (Ephedrine Sulfate) 5 mg IVPUSH ASDIRECTED PRN PRN Reason: Hypotension Fentanyl (Sublimaze) 100 mcg EPIDUR Q3H PRN PRN Reason: Pain Fentanyl/Bupivacaine HCl (Fentanyl/Bupivacaine/Ns 2 Mcg-0.125% 100 Ml) 100 ml EPIDUR ASDIRECTED AVIS Lactated Ringer's (Ringers, Lactated) 1,000 mls @ 100 mls/hr IV ASDIRECTED AVIS Last Admin: 07/09/20 04:43 Dose: 100 mls/hr Documented by: Oxytocin/Lactated Ringer's (Pitocin In Lr 10 Units/1,000 Ml) 10 unit in 1,000 mls @ 12 mls/hr IV TITRATE AVIS; Protocol Last Admin: 07/08/20 21:04 Dose: 2 munits/min, 12 mls/hr Documented by: Phenylephrine HCl 1 mg/ Sodium (Chloride) 10.1 mls @ 1 mls/sec IV TITRATE AVIS; Protocol Nalbuphine HCl (Nubain) 10 mg IVPUSH Q2H PRN PRN Reason: Pain Ondansetron HCl (Zofran) 4 mg IVPUSH Q4H PRN PRN Reason: Nausea/Vomiting Ondansetron HCl (Zofran) 4 mg IVPUSH ONETIME PRN PRN Reason: Nausea/Vomiting Sodium Chloride (Saline Flush) 10 ml FLUSH ASDIRECTED PRN PRN Reason: Keep Vein Open - Uterine Contractions Uterine Monitoring Mode: External [place] Contraction Frequency (min): 1-6 Contraction Duration (sec): 45-60 Contraction Intensity: Mild to Moderate Uterine Resting Tone: Soft - Monitoring Monitor Mode: Doppler/Auscultation Heart Rate (FHR) Baseline: 145 Heart Rate (FHR) Per Doppler: 145 Heart Rate (FHR) Variability: Moderate (6-25 bmp) Accelerations: Present, 15x15 Decelerations: None Strip Review: Category I - Vaginal Exam Dilation (cm): 5 Effacement (Percent): 80 Station: -2 Cervical Position: Anterior Sterile Vaginal Exam Performed By: Hermann Carvalho Vaginal Exam Comment: Artificial rupture of membranes performed with sterile vaginal exam with [place] with return of small amount of clear fluid. - Labor Progress (Free Text) Labor Progress: Patient with progress in dilation overnight. Artificial rupture of membranes with return of clear fluid Patient continues to have mild range blood pressures Patient with one severe range blood pressure overnight but nurse notes that patient was laying on cuff Continue routine vitals Continuous monitoring Anticipate vaginal delivery unless otherwise indicated Hermann Carvalho MD 7:36 AM 07/09/2020
[2020-07-09] MEDS: Bupivacaine/fentaNYL/NS 100 ML Bag EPIDUR SCH ×2 (07:34→18:37)
[2020-07-09] MEDS: Oxytocin/Lactated Ringers 10 UNIT/1,000 ML BAG IV SCH (14:34)
[2020-07-09] MEDS ORDERED: Azithromycin 500 MG in Sodium Chloride 0.9% 250 ML IV ONE (21:32)
[2020-07-09] MEDS ORDERED: Metoclopramide 10 MG/2 ML SDV IVPUSH ONE (21:32)
[2020-07-09] MEDS ORDERED: Citric Acid/Sodium Citrate Solution 30 ML Cup PO ONE (21:33)
[2020-07-09] MEDS ORDERED: ceFAZolin 2 GM in Premix Bag 1 BAG IV ONE (21:40)
[2020-07-09] MEDS ORDERED: Sodium Chloride 0.9% 10 ML Syringe FLUSH PRN (21:40)
--- NOTE | 2020-07-09 21:47 | PCM.PNLD ---
Labor Progress Note - VS & Meds Vital Signs: Last Vital Signs Temp 36.3 C 07/08/20 15:56 Pulse 99 07/08/20 15:56 Resp 14 07/08/20 15:56 BP 132/94 H 07/08/20 15:56 Pulse Ox 98 07/08/20 15:56 Active Medications: Current Medications Ephedrine Sulfate (Ephedrine Sulfate) 5 mg IVPUSH ASDIRECTED PRN PRN Reason: Hypotension Fentanyl (Sublimaze) 100 mcg EPIDUR Q3H PRN PRN Reason: Pain Last Admin: 07/09/20 07:33 Dose: 100 mcg Documented by: Fentanyl/Bupivacaine HCl (Fentanyl/Bupivacaine/Ns 2 Mcg-0.125% 100 Ml) 100 ml EPIDUR ASDIRECTED AVIS Last Admin: 07/09/20 18:37 Dose: 100 ml Documented by: Lactated Ringer's (Ringers, Lactated) 1,000 mls @ 100 mls/hr IV ASDIRECTED AVIS Last Admin: 07/09/20 20:48 Dose: 150 mls/hr Documented by: Oxytocin/Lactated Ringer's (Pitocin In Lr 10 Units/1,000 Ml) 10 unit in 1,000 mls @ 12 mls/hr IV TITRATE AVIS; Protocol Last Titration: 07/09/20 19:40 Dose: 20 munits/min, 120 mls/hr Documented by: Phenylephrine HCl 1 mg/ Sodium (Chloride) 10.1 mls @ 1 mls/sec IV TITRATE AVIS; Protocol Azithromycin 500 mg/ Sodium (Chloride) 250 mls @ 250 mls/hr IV ONETIME ONE Stop: 07/09/20 22:31 Nalbuphine HCl (Nubain) 10 mg IVPUSH Q2H PRN PRN Reason: Pain Ondansetron HCl (Zofran) 4 mg IVPUSH Q4H PRN PRN Reason: Nausea/Vomiting Ondansetron HCl (Zofran) 4 mg IVPUSH ONETIME PRN PRN Reason: Nausea/Vomiting Sodium Chloride (Saline Flush) 10 ml FLUSH ASDIRECTED PRN PRN Reason: Keep Vein Open Discontinued Medications Citric Acid/Sodium Citrate (Bicitra Solution) 30 ml PO ONETIME ONE Stop: 07/09/20 21:34 Metoclopramide HCl (Reglan) 10 mg IVPUSH ONETIME ONE Stop: 07/09/20 21:33 - Uterine Contractions Uterine Monitoring Mode: External [place] Contraction Frequency (min): 1-3 Contraction Duration (sec): 45-60 Contraction Intensity: Moderate to Strong Uterine Resting Tone: Soft - Monitoring Monitor Mode: Doppler/Auscultation Heart Rate (FHR) Baseline: 145 Heart Rate (FHR) Per Doppler: 145 Heart Rate (FHR) Variability: Moderate (6-25 bmp) Accelerations: Present, 15x15 Decelerations: None Strip Review: Category I - Vaginal Exam Dilation (cm): 5 Effacement (Percent): 90 Station: -1 Cervical Position: Anterior Sterile Vaginal Exam Performed By: Hermann Carvalho - Labor Progress (Free Text) Labor Progress: Celina Crews is a 19-year-old G1, P0 at 39 weeks 4 days who has been undergoing medically indicated induction of labor for gestational hypertension with no progress throughout the day today despite augmentation of labor with Pitocin and rupture membranes for greater than 12 hours. Her cervix has stayed unchanged at approximately 5 cm throughout the entirety of the day. Patient was counseled on options including placement of intrauterine pressure catheter to monitor her strength of the contractions more closely and increasing rate of the Pitocin to 30 milliunits/min versus section. Patient states that due to her discomfort and concern that the ongoing induction would not be successful she desires to proceed with primary section. Patient was counseled on the risks and benefits of a primary section versus ongoing induction and she states that she would like to proceed with the section. Consents were signed at the bedside. Patient prepped for section Patient to receive Ancef 2 g IV and azithromycin 500 mg IV for antibiotic prophylaxis. Azithromycin is being added secondary to unanticipated section with previous rupture membranes Continue IV fluids Patient with epidural in place and we will try to use this for anesthesia Continuous monitoring until patient goes back for surgery Plan for primary section Hermann Carvalho MD 9:47 PM 07/09/2020
[2020-07-09] MEDS ORDERED: Bupivacaine 0.5% 30 ML SDV ONE (21:49)
[2020-07-09] MEDS ORDERED: Oxytocin 10 Units/1 ML SDV ONE ×4 (21:50→22:49)
[2020-07-09] MEDS ORDERED: Ondansetron 4 MG/2 ML SDV ONE (21:50)
[2020-07-09] MEDS ORDERED: ceFAZolin 1 GM Vial ONE (21:50)
[2020-07-09] MEDS ORDERED: Morphine PF 1 MG/ML Amp ONE ×2 (21:50→21:51)
[2020-07-09] MEDS ORDERED: Lidocaine 2% with EPINEPHrine 1:200,000 20 ML SDV ONE (21:50)
[2020-07-09] MEDS ORDERED: Ketorolac 30 MG/ML SDV ONE (21:50)
[2020-07-09] MEDS ORDERED: fentaNYL 100 MCG/2 ML SDV ONE (21:50)
[2020-07-09] MEDS ORDERED: Lactated Ringers 2,000 ML ONE (21:50)
[2020-07-09] MEDS ORDERED: fentaNYL 100 MCG/2 ML SDV IVPUSH PRN (21:54)
[2020-07-09] MEDS ORDERED: HYDROmorphone 0.5 MG/0.5 ML Syringe IVPUSH PRN (21:54)
[2020-07-09] MEDS ORDERED: diphenhydrAMINE 50 MG/ML SDV IVPUSH PRN (21:54)
[2020-07-09] MEDS ORDERED: Midazolam 1 MG/ML 2 ML SDV ONE (22:01)
[2020-07-09] MEDS ORDERED: Meperidine 50 MG/ML Vial ONE (22:39)
--- NOTE | 2020-07-09 23:18 | PCM.POSTAN ---
POST ANESTHESIA ASSESSMENT - MENTAL STATUS Mental Status: Alert - VITAL SIGNS Vital Signs: Last Vital Signs Temp 98 07/08/202309 Pulse 117 07/08/200 Resp 15 07/08/202309 BP 131/84 07/08/202309 Pulse Ox 96 07/08/202309 - RESPIRATORY Respiratory Status: Respiratory Rate WNL, Airway Patent, O2 Saturation Stable - CARDIOVASCULAR CV Status: Pulse Rate WNL, Blood Pressure Stable - GASTROINTESTINAL GI Status: No Symptoms - POST OP HYDRATION Hydration Status: Adequate & Stable
--- NOTE | 2020-07-09 23:43 | PCM.OPNOTE ---
- General Post-Op/Procedure Note Date of Surgery/Procedure: 07/09/20 Operative Procedure(s): Primary section with vacuum extractor delivery Findings: Live female delivered in vertex presentation at 2232. weight of 3490 g (7 pounds 11.1 ounces). Apgars of 2 and 7. Arterial cord blood gas with pH of 7.10 and PCO2 of 86.0 mmHg. Base deficit was -7.6. Venous cord blood gas had a pH of 7.30 and the base deficit was -2.6. Grossly normal-appearing uterus, bilateral fallopian tubes and ovaries. Pre Op Diagnosis: Arrest of dilation at 5 cm, gestational hypertension and patient desire for section Post-Op Diagnosis: Same Anesthesia Technique: Epidural Primary Surgeon: Hermann Carvalho Anesthesia Provider: Aditi Salvador Roentgenologist: John Santos Roentgenologist: Mckenna Batista ([place] student) Reason Roentgenologist Was Necessary: Patient safety and reduction of morbidity and mortality Role of Roentgenologist: Retraction of tissue for visualization Pathology: None Fluid Replacement, Intraop: 1,800 Output, Urine Amount: 125 EBL in mLs: 700 Complications: Difficulty in delivering head and vacuum extractor used for delivery of . Condition: Good Free Text/Narrative:: Length of procedure: 48 minutes Procedure in Detail: The patient was seen in labor room #29 and the risks, benefits and complications were discussed with the patient regarding continued induction of labor versus section due to arrest of dilation. Discussed with patient that we can attempt to place an IUPC and increase the amount of Pitocin given to try to deliver vaginally and patient desired to proceed with section due to arrest of dilation at 5 cm. Appropriate consents were signed with the patient. The patient was taken to operating room #1. A Time Out was held and the patient was identified using 2 identifiers and the procedure was confirmed. The patient was given additional medications through her epidural for anesthesia and was placed in dorsal supine position with leftward tilt. She was given 2 g Ancef and 500 mg azithromycin for antibiotic prophylaxis. The patient was prepped and draped in the usual sterile manner. The abdominal skin was tested and the epidural anesthesia was found to be adequate. The skin was injected with 0.5% marcaine for local anesthesia. A Pfannenstiel skin incision was made and carried down through the subcutaneous tissue to the fascia with the scapel. The fascia was nicked in the midline using a scalpel and the fascial incision was extended transversely with Mar scissors. The superior aspect of the fascia was grasped with Thomas clamps and tented upwards. The fascia was from the underlying rectus muscle bluntly and sharply with Mar scissors. Attention was then turned to the inferior aspect of the fascia and was grasped using Thomas clamps and tented upwards. The underlying rectus muscle was dissected off bluntly and sharply with Mar scissors. The peritoneum was identified and entered bluntly. The bladder blade was inserted and the lower uterine segment was identified. A low transverse uterine incision was made sharply with a scalpel and extended laterally bluntly. The infant's head was brought to the uterine incision, the bladder blade was removed and the was attempted to be delivered. The uterine incision was evaluated and felt to be insufficient to deliver the and was extended to the left side of the uterus using bandage scissors with care taken to ensure that there was no parts between the scissor blades. Attempt was then again made to deliver the infant but was unsuccessful and decision was made to use a vacuum extractor for assistance with delivery. A mushroom cup vacuum extractor was applied to the infant's head and suction applied to 550 mmHg. The vacuum extractor then had gentle traction applied to deliver the head. There was 1 pop off during delivery. The vacuum extractor was applied to head for a total of 1 minute. On 07/09/2020 a live female was delivered in vertex position at 22:32, wt of 3490 grams, 7 pounds and 11.1 ounces. APGARS were 2 & 7. The cord was doubly clamped and cut and infant was transferred to the awaiting sanitizer, Dr. Randle. Cord blood gases were obtained. The arterial pH was 7.10 with PCO2 of 86 mmHg. The base deficit was -7.6. The venous pH was 7.30 with base deficit of -2.6. The placenta was removed intact and appeared normal with a three vessel cord. The uterus was exteriorized and the uterine cavity was cleaned using lap sponges. The hysterotomy was closed with a running locked suture of 0-Vicryl. A second suture of 0-Vicryl was used to imbricate the hysterotomy. The hysterotomy was hemostatic. The uterus, tubes and ovaries appeared overall normal. The uterus was then returned into the abdominal cavity. The hysterotomy was noted to have a small amount of bleeding from the right corner of the hysterotomy. A okaxde-gc-ndusa suture with 0 Vicryl was placed and the incision was noted to be hemostatic at this time. The fascia was noted to be hemostatic and the fascia was then reapproximated with running sutures of 0- Vicryl. The subcutaneous fat was reapproximated using 0 Monocryl. The skin was reapproximated using 4-0 Monocryl and Steri-strips were applied over the incision. Instrument, sponge, and needle counts were correct prior to the abdominal closure and at the conclusion of the case. Hermann Carvalho MD 11:41 PM 07/09/2020
[2020-07-10] MEDS ORDERED: Acetaminophen/oxyCODONE 325-5 MG Tab PO PRN (00:54)
[2020-07-10] MEDS ORDERED: diphenhydrAMINE 50 MG/ML SDV IVPUSH PRN (00:54)
[2020-07-10] MEDS ORDERED: Naloxone 0.4 MG/ML SDV IVPUSH PRN (00:54)
[2020-07-10] MEDS ORDERED: Magnesium Hydroxide 400 MG/5 ML Susp 30 ML Cup PO PRN (00:54)
[2020-07-10] MEDS ORDERED: Dextrose 5%-Lactated Ringers 1,000 ML IV SCH (00:54)
[2020-07-10] MEDS ORDERED: Oxytocin/Lactated Ringers 20 UNIT/1,000 ML BAG IV SCH (00:54)
[2020-07-10] MEDS ORDERED: Ondansetron 4 MG/2 ML SDV IV PRN (00:54)
[2020-07-10] MEDS ORDERED: ePHEDrine 50 MG/ML SDV IVPUSH PRN (00:54)
[2020-07-10] MEDS: Ketorolac 30 MG/ML SDV IVPUSH SCH ×3 (04:14→15:33)
--- NOTE | 2020-07-10 07:51 | PCM48HPAN ---
Post Anesthesia Note - EVALUATION WITHIN 48HRS OF ANESTHETIC Vital Signs in Normal Range: Yes Patient Participated in Evaluation: Yes Respiratory Function Stable: Yes Airway Patent: Yes Cardiovascular Function Stable: Yes Hydration Status Stable: Yes Pain Control Satisfactory: Yes Nausea and Vomiting Control Satisfactory: Yes Mental Status Recovered: Yes Vital Signs: Last Vital Signs Temp 36.8 C 07/10/20 05:00 Pulse 105 H 07/10/20 06:00 Resp 15 07/10/20 06:58 BP 112/65 07/10/20 05:00 Pulse Ox 96 07/10/20 06:58 - COMMENTS/OBSERVATIONS Free Text/Narrative:: NO ANESTHESIA COMPLICATIONS NOTED
[2020-07-10] MEDS: Docusate Sodium 100 MG Cap PO SCH ×2 (08:08→21:07)
[2020-07-10] MEDS: Prenatal Multivitamin with Calcium/Folic Acid/Iron Tab PO SCH (08:08)
--- NOTE | 2020-07-10 08:37 | PCM.SN.2 ---
- Free Text/Narrative Note: Post Operative Progress Note POD #1 Subjective: Doing well overall. Ambulating without difficulty but did have some lightheadedness with walking. Lochia minimal. Chavez draining clear urine. Tolerating regular diet without nausea or vomiting. Pain controlled. Breast- feeding with minimal difficulty and improving this morning. Objective: Vitals: Vital Signs - 24 hr 07/09/20 07/09/20 07/09/20 23:10 23:25 23:40 Temperature Temperature [ 36.7 C 36.7 C 36.6 C Temporal] Pulse, Peripheral Pulse, 117 H 88 89 Peripheral [ Right Pulse Oximetry] Respiratory 15 14 13 Rate Blood Pressure Blood Pressure 131/84 111/74 105/71 [Right Arm] O2 Sat by Pulse 96 96 98 Oximetry 07/09/20 07/10/20 07/10/20 23:55 00:25 00:57 Temperature 36.3 C 37.0 C Temperature [ 36.4 C Temporal] Pulse, 101 H 100 Peripheral Pulse, 80 Peripheral [ Right Pulse Oximetry] Respiratory 13 15 15 Rate Blood Pressure 99/71 126/81 Blood Pressure 120/76 [Right Arm] O2 Sat by Pulse 96 96 96 Oximetry 07/10/20 07/10/20 07/10/20 02:41 03:00 04:00 Temperature 35.7 C L Temperature [ Temporal] Pulse, 77 Peripheral Pulse, 72 88 Peripheral [ Right Pulse Oximetry] Respiratory 13 14 Rate Blood Pressure 121/68 Blood Pressure 121/68 [Right Arm] O2 Sat by Pulse 91 L 98 Oximetry 07/10/20 07/10/20 07/10/20 05:00 06:00 06:58 Temperature Temperature [ 36.8 C Temporal] Pulse, Peripheral Pulse, 65 105 H Peripheral [ Right Pulse Oximetry] Respiratory 14 16 15 Rate Blood Pressure Blood Pressure 112/65 [Right Arm] O2 Sat by Pulse 94 L 96 Oximetry Physical Exam General: Alert and oriented, no acute distress Lungs: Clear to auscultation bilaterally Heart: Regular rate and rhythm Abdomen: Soft, minimal appropriate tenderness, non-distended, fundus midline, nontender and at the umbilicus Incision: Clean, dry and intact, no erythema, bleeding or drainage with Steri- Strips in place. Bandage removed with small amount of blood mixed with irrigation fluid. Extremities: 1+ edema in bilateral lower extremities to mid shins Labs: Laboratory Results - last 24 hr 07/08/20 07/10/20 Range/Units 16:18 04:47 WBC 13.89 H (3.98-10.04) K/mm3 RBC 3.14 L (3.98-5.22) M/mm3 Hgb 8.9 L D (11.2-15.7) gm/dl Hct 27.5 L (34.1-44.9) % MCV 87.6 (79.4-94.8) fl MCH 28.3 (25.6-32.2) pg MCHC 32.4 (32.2-35.5) g/dl RDW Std Deviation 40.0 (36.4-46.3) fL Plt Count 211 D (182-369) K/mm3 MPV 11.1 (9.4-12.3) fl Neut % (Auto) 78.8 H (34.0-71.1) % Lymph % (Auto) 15.4 L (19.3-51.7) % [place] % (Auto) 5.3 (4.7-12.5) % Eos % (Auto) 0.1 L (0.7-5.8) Baso % (Auto) 0.1 (0.1-1.2) % Neut # (Auto) 10.96 H (1.56-6.13) K/mm3 Lymph # (Auto) 2.14 (1.18-3.74) K/mm3 [place] # (Auto) 0.73 H (0.24-0.36) K/mm3 Eos # (Auto) 0.01 L (0.04-0.36) K/mm3 Baso # (Auto) 0.01 (0.01-0.08) K/mm3 Blood Type A POSITIVE Gel Antibody Screen Negative ASSESSMENT: 19-year-old female -0-0-1 s/p primary section with vacuum extrac tor delivery POD #1 for arrest of dilation at 5 cm and patient request, complicated by gestational hypertension and obesity PLAN: Doing well Breast-feeding with minimal difficulty. Assist as needed Incision healing well. Continue to keep clean and dry. Lochia minimal. Continue to monitor for appropriate lochia. Continue routine post-operative care Hemoglobin this morning was 8.9 down from 12.7 on admission. We will recheck her CBC at 1 PM to ensure that she is not continue to have a drop in her hemoglobin level. Anticipate discharge home tomorrow Hermann Carvalho MD 8:06 AM 07/10/2020
[2020-07-10] MEDS: Ibuprofen 600 MG Tab PO PRN (23:12)
[2020-07-11 03:45] VITALS: BP 141/76; PULSE 87
[2020-07-11] MEDS: Ibuprofen 600 MG Tab PO PRN (06:13)
[2020-07-11] MEDS: Prenatal Multivitamin with Calcium/Folic Acid/Iron Tab PO SCH (09:04)
[2020-07-11] MEDS: Docusate Sodium 100 MG Cap PO SCH (09:04)
[2020-07-11] MEDS: Acetaminophen/oxyCODONE 325-5 MG Tab PO PRN ×2 (09:07→14:28)
--- NOTE | 2020-07-11 09:51 | PCM.DCSUM1 ---
Discharge Summary - Hospital Course Free Text/Narrative:: [facility] Post-Op/Procedure Note Patient Name: ANKIT AGUIRRE Date of : 00 Patient Status: Inpatient Attending Provider: Hermann Carvalho Date: 07/09/20 23:40 Initialization Date: 07/09/20 23:40 - General Post-Op/Procedure Note Date of Surgery/Procedure: 07/09/20 Operative Procedure(s): Primary section with vacuum extractor delivery Findings: Live female delivered in vertex presentation at 2232. weight of 3490 g (7 pounds 11.1 ounces). Apgars of 2 and 7. Arterial cord blood gas with pH of 7.10 and PCO2 of 86.0 mmHg. Base deficit was -7.6. Venous cord blood gas had a pH of 7.30 and the base deficit was -2.6. Grossly normal-appearing uterus, bilateral fallopian tubes and ovaries. Pre Op Diagnosis: Arrest of dilation at 5 cm, gestational hypertension and patient desire for section Post-Op Diagnosis: Same Anesthesia Technique: Epidural Primary Surgeon: Hermann Carvalho Anesthesia Provider: Aditi Salvador Senior Android Software Engineer: John Santos Senior Android Software Engineer: Mckenna Batista (PA student) Reason Senior Android Software Engineer Was Necessary: Patient safety and reduction of morbidity and mortality Role of Senior Android Software Engineer: Retraction of tissue for visualization Pathology: None Fluid Replacement, Intraop: 1,800 Output, Urine Amount: 125 EBL in mLs: 700 Complications: Difficulty in delivering head and vacuum extractor used for delivery of infant. Condition: Good Free Text/Narrative:: Length of procedure: 48 minutes Procedure in Detail: The patient was seen in labor room #29 and the risks, benefits and complications were discussed with the patient regarding continued induction of labor versus section due to arrest of dilation. Discussed with patient that we can attempt to place an IUPC and increase the amount of Pitocin given to try to deliver vaginally and patient desired to proceed with section due to arrest of dilation at 5 cm. Appropriate consents were signed with the patient. The patient was taken to operating room #1. A Time Out was held and the patient was identified using 2 identifiers and the procedure was confirmed. The patient was given additional medications through her epidural for anesthesia and was placed in dorsal supine position with leftward tilt. She was given 2 g Ancef and 500 mg azithromycin for antibiotic prophylaxis. The patient was prepped and draped in the usual sterile manner. The abdominal skin was tested and the epidural anesthesia was found to be adequate. The skin was injected with 0.5% marcaine for local anesthesia. A Pfannenstiel skin incision was made and carried down through the subcutaneous tissue to the fascia with the scapel. The fascia was nicked in the midline using a scalpel and the fascial incision was extended transversely with Mar scissors. The superior aspect of the fascia was grasped with Thomas clamps and tented upwards. The fascia was from the underlying rectus muscle bluntly and sharply with Mar scissors. Attention was then turned to the inferior aspect of the fascia and was grasped using Thomas clamps and tented upwards. The underlying rectus muscle was dissected off bluntly and sharply with Mar scissors. The peritoneum was identified and entered bluntly. The bladder blade was inserted and the lower uterine segment was identified. A low transverse uterine incision was made sharply with a scalpel and extended laterally bluntly. The infant's head was brought to the uterine incision, the bladder blade was removed and the was attempted to be delivered. The uterine incision was evaluated and felt to be insufficient to deliver the and was extended to the left side of the uterus using bandage scissors with care taken to ensure that there was no parts between the scissor blades. Attempt was then again made to deliver the infant but was unsuccessful and decision was made to use a vacuum extractor for assistance with delivery. A mushroom cup vacuum extractor was applied to the 's head and suction applied to 550 mmHg. The vacuum extractor then had gentle traction applied to deliver the head. There was 1 pop off during delivery. The vacuum extractor was applied to head for a total of 1 minute. On 07/09/2020 a live female infant was delivered in vertex position at 22:32, wt of 3490 grams, 7 pounds and 11.1 ounces. APGARS were 2 & 7. The cord was doubly clamped and cut and was transferred to the awaiting obgyn specialist, Dr. Randle. Cord blood gases were obtained. The arterial pH was 7.10 with PCO2 of 86 mmHg. The base deficit was -7.6. The venous pH was 7.30 with base deficit of -2.6. The placenta was removed intact and appeared normal with a three vessel cord. The uterus was exteriorized and the uterine cavity was cleaned using lap sponges. The hysterotomy was closed with a running locked suture of 0-Vicryl. A second suture of 0-Vicryl was used to imbricate the hysterotomy. The hysterotomy was hemostatic. The uterus, tubes and ovaries appeared overall normal. The uterus was then returned into the abdominal cavity. The hysterotomy was noted to have a small amount of bleeding from the right corner of the hysterotomy. A svssuz-ht-chggg suture with 0 Vicryl was placed and the incision was noted to be hemostatic at this time. The fascia was noted to be hemostatic and the fascia was then reapproximated with running sutures of 0- Vicryl. The subcutaneous fat was reapproximated using 0 Monocryl. The skin was reapproximated using 4-0 Monocryl and Steri-strips were applied over the incision. Instrument, sponge, and needle counts were correct prior to the abdominal closure and at the conclusion of the case. Hermann Carvalho MD 11:41 PM 07/09/2020 HPI Initial Comments: [facility] Post-Op/Procedure Note Patient Name: ANKIT AGUIRRE Date of : 00 Patient Status: Inpatient Attending Provider: Hermann Carvalho Date: 07/09/20 23:40 Initialization Date: 07/09/20 23:40 - General Post-Op/Procedure Note Date of Surgery/Procedure: 07/09/20 Operative Procedure(s): Primary section with vacuum extractor delivery Findings: Live female delivered in vertex presentation at 2232. weight of 3490 g (7 pounds 11.1 ounces). Apgars of 2 and 7. Arterial cord blood gas with pH of 7.10 and PCO2 of 86.0 mmHg. Base deficit was -7.6. Venous cord blood gas had a pH of 7.30 and the base deficit was -2.6. Grossly normal-appearing uterus, bilateral fallopian tubes and ovaries. Pre Op Diagnosis: Arrest of dilation at 5 cm, gestational hypertension and patient desire for section Post-Op Diagnosis: Same Anesthesia Technique: Epidural Primary Surgeon: Hermann Carvalho Anesthesia Provider: Aditi Salvador Senior Android Software Engineer: John Santos Senior Android Software Engineer: Mckenna Batista (PA student) Reason Senior Android Software Engineer Was Necessary: Patient safety and reduction of morbidity and mortality Role of Senior Android Software Engineer: Retraction of tissue for visualization Pathology: None Fluid Replacement, Intraop: 1,800 Output, Urine Amount: 125 EBL in mLs: 700 Complications: Difficulty in delivering head and vacuum extractor used for delivery of infant. Condition: Good Free Text/Narrative:: Length of procedure: 48 minutes Procedure in Detail: The patient was seen in labor room #29 and the risks, benefits and complications were discussed with the patient regarding continued induction of labor versus section due to arrest of dilation. Discussed with patient that we can attempt to place an IUPC and increase the amount of Pitocin given to try to deliver vaginally and patient desired to proceed with section due to arrest of dilation at 5 cm. Appropriate consents were signed with the patient. The patient was taken to operating room #1. A Time Out was held and the patient was identified using 2 identifiers and the procedure was confirmed. The patient was given additional medications through her epidural for anesthesia and was placed in dorsal supine position with leftward tilt. She was given 2 g Ancef and 500 mg azithromycin for antibiotic prophylaxis. The patient was prepped and draped in the usual sterile manner. The abdominal skin was tested and the epidural anesthesia was found to be adequate. The skin was injected with 0.5% marcaine for local anesthesia. A Pfannenstiel skin incision was made and carried down through the subcutaneous tissue to the fascia with the scapel. The fascia was nicked in the midline using a scalpel and the fascial incision was extended transversely with Mar scissors. The superior aspect of the fascia was grasped with Thomas clamps and tented upwards. The fascia was from the underlying rectus muscle bluntly and sharply with Mar scissors. Attention was then turned to the inferior aspect of the fascia and was grasped using Thomas clamps and tented upwards. The underlying rectus muscle was dissected off bluntly and sharply with Mar scissors. The peritoneum was identified and entered bluntly. The bladder blade was inserted and the lower uterine segment was identified. A low transverse uterine incision was made sharply with a scalpel and extended laterally bluntly. The 's head was brought to the uterine incision, the bladder blade was removed and the infant was attempted to be delivered. The uterine incision was evaluated and felt to be insufficient to deliver the infant and was extended to the left side of the uterus using bandage scissors with care taken to ensure that there was no parts between the scissor blades. Attempt was then again made to deliver the but was unsuccessful and decision was made to use a vacuum extractor for assistance with delivery. A mushroom cup vacuum extractor was applied to the 's head and suction applied to 550 mmHg. The vacuum extractor then had gentle traction applied to deliver the head. There was 1 pop off during delivery. The vacuum extractor was applied to head for a total of 1 minute. On 07/09/2020 a live female was delivered in vertex position at 22:32, wt of 3490 grams, 7 pounds and 11.1 ounces. APGARS were 2 & 7. The cord was doubly clamped and cut and was transferred to the awaiting obgyn specialist, Dr. Randle. Cord blood gases were obtained. The arterial pH was 7.10 with PCO2 of 86 mmHg. The base deficit was -7.6. The venous pH was 7.30 with base deficit of -2.6. The placenta was removed intact and appeared normal with a three vessel cord. The uterus was exteriorized and the uterine cavity was cleaned using lap sponges. The hysterotomy was closed with a running locked suture of 0-Vicryl. A second suture of 0-Vicryl was used to imbricate the hysterotomy. The hysterotomy was hemostatic. The uterus, tubes and ovaries appeared overall normal. The uterus was then returned into the abdominal cavity. The hysterotomy was noted to have a small amount of bleeding from the right corner of the hysterotomy. A naynbe-rm-sdfas suture with 0 Vicryl was placed and the incision was noted to be hemostatic at this time. The fascia was noted to be hemostatic and the fascia was then reapproximated with running sutures of 0- Vicryl. The subcutaneous fat was reapproximated using 0 Monocryl. The skin was reapproximated using 4-0 Monocryl and Steri-strips were applied over the incision. Instrument, sponge, and needle counts were correct prior to the abdominal closure and at the conclusion of the case. Hermann Carvalho MD 11:41 PM 07/09/2020 Brief History: [facility] . Post-Op/Procedure Note. Patient Name: ANKIT AGUIRRE Record Number: [id number]. Date of : 00Patient Status: Inpatient. Attending Provider: Hermann Carvalho JAccount Number: [id number]. Date: 07/09/20 23:40Initialization Date: 07/09/20 23:40. - General Post-Op/Procedure Note. Date of Surgery/Procedure: 07/09/20. Operative Procedure(s): Primary section with vacuum extractor delivery. Findings: Live female infant delivered in vertex presentation at 2232. weight of 3490 g (7 pounds 11.1 ounces). Apgars of 2 and 7. Arterial cord blood gas with pH of 7.10 and PCO2 of 86.0 mmHg. Base deficit was -7.6. Venous cord blood gas had a pH of 7.30 and the base deficit was -2.6. Grossly normal- appearing uterus, bilateral fallopian tubes and ovaries. Pre Op Diagnosis: Arrest of dilation at 5 cm, gestational hypertension and patient desire for section. Post-Op Diagnosis: Same. Anesthesia Technique: Epidural. Primary Surgeon: Hermann Carvalho. Anesthesia Provider: Aditi Salvador. Senior Android Software Engineer: John Santos. Senior Android Software Engineer: Mckenna Batista (PA student). Reason Senior Android Software Engineer Was Necessary: Patient safety and reduction of morbidity and mortality. Role of Senior Android Software Engineer: Retraction of tissue for visualization. Pathology: None. Fluid Replacement, Intraop: 1,800. Output, Urine Amount: 125. EBL in mLs: 700. Complications: Difficulty in delivering head and vacuum extractor used for delivery of . Condition: Good. Free Text/Narrative:: Length of procedure: 48 minutes. Procedure in Detail: The patient was seen in labor room #29 and the risks, benefits and complications were discussed with the patient regarding continued induction of labor versus section due to arrest of dilation. Discussed with patient that we can attempt to place an IUPC and increase the amount of Pitocin given to try to deliver vaginally and patient desired to proceed with section due to arrest of dilation at 5 cm. Appropriate consents were signed with the patient. The patient was taken to operating room #1. A Time Out was held and the pa tient was identified using 2 identifiers and the procedure was confirmed. The patient was given additional medications through her epidural for anesthesia and was placed in dorsal supine position with leftward tilt. She was given 2 g Ancef and 500 mg azithromycin for antibiotic prophylaxis. The patient was prepped and draped in the usual sterile manner. The abdominal skin was tested and the epidural anesthesia was found to be adequate. The skin was injected with 0.5% marcaine for local anesthesia. A Pfannenstiel skin incision was made and carried down through the subcutaneous tissue to the fascia with the scapel. The fascia was nicked in the midline using a scalpel and the fascial incision was extended transversely with Mar scissors. The superior aspect of the fascia was grasped with Thomas clamps and tented upwards. The fascia was from the underlying rectus muscle bluntly and sharply with Mar scissors. Attention was then turned to the inferior aspect of the fascia and was grasped using Thomas clamps and tented upwards. The underlying rectus muscle was dissected off bluntly and sharply with Mar scissors. The peritoneum was identified and entered bluntly. The bladder blade was inserted and the lower uterine segment was identified. A low transverse uterine incision was made sharply with a scalpel and extended laterally bluntly. The infant's head was br ought to the uterine incision, the bladder blade was removed and the infant was attempted to be delivered. The uterine incision was evaluated and felt to be insufficient to deliver the infant and was extended to the left side of the uterus using bandage scissors with care taken to ensure that there was no parts between the scissor blades. Attempt was then again made to deliver the but was unsuccessful and decision was made to use a vacuum extractor for assistance with delivery. A mushroom cup vacuum extractor was applied to the 's head and suction applied to 550 mmHg. The vacuum extractor then had gentle traction applied to deliver the head. There was 1 pop off during delivery. The vacuum extractor was applied to head for a total of 1 minute. On 07/09/2020 a live female infant was delivered in vertex position at 22:32, wt of 3490 grams, 7 pounds and 11.1 ounces. APGARS were 2 & 7. The cord was doubly clamped and cut and was transferred to the awaiting obgyn specialist, Dr. Randle. Cord blood gases were obtained. The arterial pH was 7.10 with PCO2 of 86 mmHg. The base deficit was -7.6. The venous pH was 7.30 with base deficit of -2.6. The placenta was removed intact and appeared normal with a three vessel cord. The uterus was exteriorized and the uterine cavity was cleaned using lap sponges. The hysterotomy was closed with a running locked suture of 0-Vicryl. A second suture of 0-Vicryl was used to imbricate the hysterotomy. The hysterotomy was hemostatic. The uterus, tubes and ovaries appeared overall normal. The uterus was then returned into the abdominal cavity. The hysterotomy was noted to have a small amount of bleeding from the right corner of the hysterotomy. A kbnekz-ht-nvpgr suture with 0 Vicryl was placed and the incision was noted to be hemostatic at this time. The fascia was noted to be hemostatic and the fascia was then reapproximated with running sutures of 0-Vicryl. The subcutaneous fat was reapproximated using 0 Monocryl. The skin was reapproximated using 4-0 Monocryl and Steri-strips were applied over the incision. Instrument, sponge, and needle counts were correct prior to the abdominal closure and at the conclusion of the case. Hermann Carvalho MD. 11:41 PM. 07/09/2020 Diagnosis: Stroke: No - Discharge Data Discharge Date: 07/11/20 Discharge Disposition: Home, Self-Care 01 Condition: Good - Referral to Home Health Primary Care Physician: Hermann Carvalho MD - Discharge Diagnosis/Problem(s) (1) 39 weeks gestation of SNOMED Code(s): 73413726 ICD Code: Z3A.39 - 39 WEEKS GESTATION OF Status: Acute Current Visit: Yes (2) Gestational hypertension SNOMED Code(s): 021215940 ICD Code: O13.9 - GESTATIONAL HTN W/O SIGNIFICANT PROTEINURIA, UNSP TRIMESTER Status: Acute Current Visit: Yes Qualifiers: Trimester: third trimester Qualified Code(s): O13.3 - Gestational [-induced] hypertension without significant proteinuria, third trimester (3) delivery with vacuum assistance, delivered, current hospitalization SNOMED Code(s): 072231123, 892696155 ICD Code: O82 - ENCOUNTER FOR DELIVERY WITHOUT INDICATION Status: Acute Current Visit: Yes (4) Arrest of dilation, delivered, current hospitalization SNOMED Code(s): 12615606, 610028784 ICD Code: O62.1 - SECONDARY UTERINE INERTIA Status: Acute Current Visit: Yes - Patient Summary/Data Operative Procedure(s) Performed: Primary section with vacuum extractor delivery Complications: none Consults: none Hospital Course: uneventful - Patient Instructions Diet: Usual Diet as Tolerated Driving: Do Not Drive Showering/Bathing: May Shower (2 weeks), No Tub Bathing/Swimming (x6 weeks) Wound/Incision Care: Keep Operative Site/Wound Site Clean and Dry Notify Provider of: Fever, Increased Pain, Swelling and Redness, Drainage, Nausea and/or Vomiting - Discharge Plan *PRESCRIPTION DRUG MONITORING PROGRAM REVIEWED*: Yes *COPY OF PRESCRIPTION DRUG MONITORING REPORT IN PATIENT MOSES: Yes Prescriptions/Med Rec: Acetaminophen/oxyCODONE [Percocet 325-5 MG] 1 tab PO Q6H PRN #15 tablet PRN Reason: Pain (Severe 7-10) Home Medications: Home Meds Mv-Mn/Iron/FA/Herbal/Digestive [ One Tablet] 1 each PO DAILY 07/08/20 [History] Acetaminophen/oxyCODONE [Percocet 325-5 MG] 1 tab PO Q6H PRN #15 tablet 07/11/20 [Rx] Referrals: Hermann Carvalho MD [Primary Care Provider] - (Call Monday for appointment for follow-up in [address] Carvalho) - Discharge Summary/Plan Comment DC Time >30 min.: No - Patient Data Vitals - Most Recent: Last Vital Signs Temp 96.8 F L 07/11/20 02:57 Pulse 87 07/11/20 02:59 Resp 14 07/11/20 02:57 BP 141/76 H 07/11/20 02:59 Pulse Ox 96 07/11/20 02:59 Weight - Most Recent: 252 lb I&O - Last 24 hours: Intake & Output 07/10/20 07/11/20 07/11/20 22:59 06:59 14:59 Output Total 300 Balance -300 Lab Results - Last 24 hrs: Laboratory Results - last 24 hr 07/10/20 Range/Units 13:05 WBC 12.24 H (3.98-10.04) K/mm3 RBC 3.12 L (3.98-5.22) M/mm3 Hgb 8.9 L (11.2-15.7) gm/dl Hct 27.3 L (34.1-44.9) % MCV 87.5 (79.4-94.8) fl MCH 28.5 (25.6-32.2) pg MCHC 32.6 (32.2-35.5) g/dl RDW Std Deviation 40.5 (36.4-46.3) fL Plt Count 205 (182-369) K/mm3 MPV 9.7 (9.4-12.3) fl Neut % (Auto) 79.5 H (34.0-71.1) % Lymph % (Auto) 14.5 L (19.3-51.7) % [place] % (Auto) 5.5 (4.7-12.5) % Eos % (Auto) 0.2 L (0.7-5.8) Baso % (Auto) 0.1 (0.1-1.2) % Neut # (Auto) 9.74 H (1.56-6.13) K/mm3 Lymph # (Auto) 1.78 (1.18-3.74) K/mm3 [place] # (Auto) 0.67 H (0.24-0.36) K/mm3 Eos # (Auto) 0.02 L (0.04-0.36) K/mm3 Baso # (Auto) 0.01 (0.01-0.08) K/mm3 Med Orders - Current: Current Medications Diphenhydramine HCl (Benadryl) 25 mg IVPUSH Q6H PRN PRN Reason: Itching or Nausea Docusate Sodium (Colace) 100 mg PO BID [facility] Last Admin: 07/11/20 09:04 Dose: 100 mg Documented by: Ephedrine Sulfate (Ephedrine Sulfate) 5 mg IVPUSH SEECOMMENT PRN PRN Reason: Other Oxytocin/Lactated Ringer's (Pitocin In Lr 20 Units/1,000 Ml) 20 unit in 1,000 mls @ 500 mls/hr IV .CONTINUOUS AVIS Ibuprofen (Motrin) 600 mg PO Q6H PRN PRN Reason: mild pain or fever Last Admin: 07/11/20 06:13 Dose: 600 mg Documented by: Magnesium Hydroxide (Milk Of Magnesia) 30 ml PO BEDTIME PRN PRN Reason: Constipation Naloxone HCl (Narcan) 0.1 mg IVPUSH SEECOMMENT PRN PRN Reason: Respiratory Depression Ondansetron HCl (Zofran) 4 mg IV Q6H PRN PRN Reason: Nausea/Vomiting Oxycodone/Acetaminophen (Percocet 325-5 Mg) 1 tab PO Q6H PRN PRN Reason: Pain (moderate 4-6) Last Admin: 07/11/20 09:07 Dose: 1 tab Documented by: Oxycodone/Acetaminophen (Percocet 325-5 Mg) 2 tab PO Q6H PRN PRN Reason: Pain (severe 7-10) Prenat Multivit/Campbell/Iron/Folic Ac ( Plus Iron) 1 each PO DAILY AVIS Last Admin: 07/11/20 09:04 Dose: 1 each Documented by: Discontinued Medications Bupivacaine HCl (Marcaine 0.5%) Confirm Administered Dose 30 ml .ROUTE .STK-MED ONE Stop: 07/09/20 21:50 Last Admin: 07/09/20 22:17 Dose: 20 ml Documented by: Bupivacaine HCl (Sensorcaine-Mpf 0.25%) 10 ml .ROUTE .STK-MED ONE Stop: 07/09/20 00:01 Cefazolin Sodium (Ancef) Confirm Administered Dose 2 gm .ROUTE .STK-MED ONE Stop: 07/09/20 21:51 Citric Acid/Sodium Citrate (Bicitra Solution) 30 ml PO ONETIME ONE Stop: 07/09/20 21:34 Last Admin: 07/09/20 21:48 Dose: 30 ml Documented by: Diphenhydramine HCl (Benadryl) 25 mg IVPUSH Q6H PRN PRN Reason: pruritis Ephedrine Sulfate (Ephedrine Sulfate) 5 mg IVPUSH ASDIRECTED PRN PRN Reason: Hypotension Ephedrine Sulfate (Ephedrine Sulfate) 5 mg IVPUSH ASDIRECTED PRN PRN Reason: Hypotension Ephedrine Sulfate (Ephedrine 25 Mg/5 Ml Syringe) 25 mg IV .STK-MED ONE Stop: 07/09/20 00:01 Fentanyl (Sublimaze) 100 mcg EPIDUR Q3H PRN PRN Reason: Pain Last Admin: 07/09/20 07:33 Dose: 100 mcg Documented by: Fentanyl (Sublimaze) Confirm Administered Dose 100 mcg .ROUTE .STK-MED ONE Stop: 07/09/20 21:51 Fentanyl (Sublimaze) 50 mcg IVPUSH Q5M PRN PRN Reason: Pain Fentanyl/Bupivacaine HCl (Fentanyl/Bupivacaine/Ns 2 Mcg-0.125% 100 Ml) 100 ml EPIDUR ASDIRECTED AVIS Last Admin: 07/09/20 18:37 Dose: 100 ml Documented by: Hydromorphone HCl (Dilaudid) 0.5 mg IVPUSH ONETIME PRN PRN Reason: Pain Lactated Ringer's (Ringers, Lactated) 1,000 mls @ 100 mls/hr IV ASDIRECTED AVIS Last Admin: 07/09/20 20:48 Dose: 150 mls/hr Documented by: Oxytocin/Lactated Ringer's (Pitocin In Lr 10 Units/1,000 Ml) 10 unit in 1,000 mls @ 12 mls/hr IV TITRATE AVIS; Protocol Last Titration: 07/09/20 19:40 Dose: 20 munits/min, 120 mls/hr Documented by: Phenylephrine HCl 1 mg/ Sodium (Chloride) 10.1 mls @ 1 mls/sec IV TITRATE AVIS; Protocol Azithromycin 500 mg/ Sodium (Chloride) 250 mls @ 250 mls/hr IV ONETIME ONE Stop: 07/09/20 22:31 Last Admin: 07/09/20 21:43 Dose: 250 mls/hr Documented by: Cefazolin Sodium/Dextrose 2 gm (/ Premix) 50 mls @ 100 mls/hr IV ONETIME ONE Stop: 07/09/20 22:09 Last Admin: 07/10/20 06:10 Dose: Not Given Documented by: Lactated Ringer's (Ringers, Lactated) Confirm Administered Dose 2,000 mls @ as directed .ROUTE .STK-MED ONE Stop: 07/09/20 21:51 Phenylephrine HCl 1 mg/ Sodium (Chloride) 10.1 mls @ 1 mls/sec IV TITRATE AVIS; Protocol Dextrose/Lactated Ringer's (Dextrose 5%-Lactated Ringers) 1,000 mls @ 125 mls/hr IV ASDIRECTED AVIS Stop: 07/10/20 08:53 Last Admin: 07/10/20 04:17 Dose: 125 mls/hr Documented by: Ketorolac Tromethamine (Toradol) Confirm Administered Dose 30 mg .ROUTE .STK-MED ONE Stop: 07/09/20 21:51 Ketorolac Tromethamine (Toradol) 30 mg IVPUSH Q6H [facility] Stop: 07/10/20 16:01 Last Admin: 07/10/20 15:33 Dose: 30 mg Documented by: Lidocaine/Epinephrine (Xylocaine-Mpf 2%-Epi 1:200,000) Confirm Administered Dose 20 ml .ROUTE .STK-MED ONE Stop: 07/09/20 21:51 Meperidine HCl (Meperidine) Confirm Administered Dose 50 mg .ROUTE .STK-MED ONE Stop: 07/09/20 22:40 Metoclopramide HCl (Reglan) 10 mg IVPUSH ONETIME ONE Stop: 07/09/20 21:33 Last Admin: 07/09/20 21:47 Dose: 10 mg Documented by: Midazolam HCl (Versed 1 Mg/Ml) Confirm Administered Dose 2 mg .ROUTE .STK-MED ONE Stop: 07/09/20 22:02 Miscellaneous Medication (Phenylephrine 1 Mg/10 Ml-Ns) Confirm Administered Dose 1 mg IV .STK-MED ONE Stop: 07/09/20 21:51 Morphine Sulfate (Duramorph Pf) Confirm Administered Dose 0 mg .ROUTE .STK-MED ONE Stop: 07/09/20 21:51 Morphine Sulfate (Duramorph Pf) Confirm Administered Dose 1 mg .ROUTE .STK-MED ONE Stop: 07/09/20 21:52 Nalbuphine HCl (Nubain) 10 mg IVPUSH Q2H PRN PRN Reason: Pain Ondansetron HCl (Zofran) 4 mg IVPUSH Q4H PRN PRN Reason: Nausea/Vomiting Ondansetron HCl (Zofran) 4 mg IVPUSH ONETIME PRN PRN Reason: Nausea/Vomiting Ondansetron HCl (Zofran) Confirm Administered Dose 4 mg .ROUTE .STK-MED ONE Stop: 07/09/20 21:51 Ondansetron HCl (Zofran) 4 mg IVPUSH ONETIME PRN PRN Reason: Nausea/Vomiting Oxytocin (Pitocin) Confirm Administered Dose 10 unit .ROUTE .ST-MED ONE Stop: 07/09/20 21:51 Oxytocin (Pitocin) Confirm Administered Dose 10 unit .ROUTE .[facility]-MED ONE Stop: 07/09/20 21:58 Oxytocin (Pitocin) [facility] Stop: 07/09/20 22:49 Oxytocin (Pitocin) Confirm Administered D[facility] Stop: 07/09/20 22:50 Sodium Chloride (Saline Flush) 10 ml FLUSH ASDIRECTED PRN PRN Reason: Keep Vein Open Sodium Chloride (Saline Flush) 10 ml FLUSH ASDIRECTED PRN PRN Reason: Keep Vein Open
== END 2020-07-11 14:25 | disposition home or self-care (01) | DRG 540 ==
LOC: JD.OBCHECK 15:47 → JD.OB 15:49 → JD.OBCHECK 20:04 → JD.OB 20:28 → OBSVTOIN 07-09 22:32
PROVIDERS: ADMIT Obstetrics & Gynecology; ATTEND Obstetrics & Gynecology
PROC: 10D00Z1 Extraction of Products of Conception, Low, Open Approach (ICD-10-PCS; principal; 2020-07-09)
DX: O13.4 Gestational [pregnancy-induced] hypertension without significant proteinuria, complicating childbirth (principal); Z3A.39 39 weeks gestation of pregnancy; Z37.0 Single live birth; O62.1 Secondary uterine inertia; Z20.828 Contact with and (suspected) exposure to other viral communicable diseases
CPT/HCPCS: 01967; 01968; 36415; 51702; 59025; 80053; 82570; 84156; 85025; 86592; 86850; 86900; 86901; A9270-GY; J0171; J0456; J0690; J1885; J2175; J2250; J2274; J2370; J2405; J2590; J2765; J3010; J3490; J7050; J7120; J7121; U0002

== ENCOUNTER 2021-06-23 22:03 | Emergency (ER) | payer BC, MEDICAID ==
--- NOTE | 2021-06-23 22:28 | EDM.PDOC ---
ED HPI GENERAL MEDICAL PROBLEM - General Chief Complaint: Skin Complaint Stated Complaint: REMOVAL OF CYST A YR AGO ON BACK, SOME DRAINAGE Time Seen by Provider: 06/23/21 22:11 Source of Information: Reports: Patient, RN Notes Reviewed History Limitations: Reports: No Limitations - History of Present Illness INITIAL COMMENTS - FREE TEXT/NARRATIVE: Patient is a 20-year-old female who presents to the ER for the evaluation of a skin issue. Patient had a pilonidal cyst removed roughly a year ago, by Dr. Lockett. She states that she developed some pain to this area over the last few days, and has appreciated some minor drainage to the area. She has not had any fevers or chills, cough or shortness of breath, or any sort of nausea/vomiting/diarrhea. Patient states that the area is very painful and tender. She has not tried anything topically to the area to see if this is helped to relieve some of the pain. She has not taken any sort of Tylenol ibuprofen prior to coming to the ER. Sacral Pain Score (Numeric/FACES): 8 - Related Data Allergies Allergy/AdvReac Type Severity Reaction Status Date / Time No Known Allergies Allergy Verified 06/23/21 22:13 Home Meds: Home Meds Mv-Mn/Iron/FA/Herbal/Digestive [ One Tablet] 1 each PO DAILY 07/08/20 [History] Acetaminophen/oxyCODONE [Percocet 325-5 MG] 1 tab PO Q6H PRN #15 tablet 07/11/20 [Rx] Miconazole [Miconazole 2% Crm] 1 applic TOP BID #1 tube 06/23/21 [Rx] Past Medical History Gastrointestinal History: Reports: Other (See Below) (Pilonidal cyst with incision and drainage on 03/04/2020) [employer] History: Reports: Psychiatric History: Reports: Depression, Mood Swings Endocrine/Metabolic History: Reports: Obesity/BMI 30+ Dermatologic History: Reports: Other (See Below) (Pilonidal cyst) - Past Surgical History HEENT Surgical History: Reports: Oral Surgery Dermatological Surgical History: Reports: Other (See Below) (Pilonidal cyst excision April 2020) Social & Family History - Family History Family Medical History: No Pertinent Family History Endocrine/Metabolic: Reports: Other (See Below) - Tobacco Use Tobacco Use Status *Q: Never Tobacco User Second Hand Smoke Exposure: No - Caffeine Use Caffeine Use: Reports: None - Recreational Drug Use Recreational Drug Use: No - Living Situation & Occupation Living situation: Reports: with Significant Other (Fiance) 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 ED EXAM, SKIN/RASH Exam: See Below Exam Limited By: No Limitations General Appearance: Alert, WD/WN, No Apparent Distress Respiratory/Chest: No Respiratory Distress, Lungs Clear, Normal Breath Sounds, No Accessory Muscle Use, Chest Non-Tender Cardiovascular: Normal Peripheral Pulses, Regular Rate, Rhythm, No Edema Neurological: Alert, Oriented, Normal Cognition, No Motor/Sensory Deficits Psychiatric: Normal Affect, Normal Mood Skin: Warm, Dry, Normal Color, No Rash, Other (There is an area to the patient's upper gluteal cleft, from the edge of the patient's scar from cyst excision, to almost the entrance of the rectum, that does have the appearance of skin breakdown, has the appearance also of possible fungal/skinfold yeast infection) Course - Vital Signs Last Recorded V/S: Last Vital Signs Temp 98.2 F 06/23/21 22:08 Pulse 112 H 06/23/21 22:08 Resp 16 06/23/21 22:08 BP 133/78 06/23/21 22:08 Pulse Ox 100 06/23/21 22:08 - Re-Assessments/Exams Free Text/Narrative Re-Assessment/Exam: 06/23/21 22:27 Patient presents to the ER for evaluation of some drainage near her tailbone. This does have the appearance of skin breakdown or yeast infection of the skin, within the upper gluteal cleft. This is very tender to palpation, we will go ahead and try to apply a barrier cream for tonight's purposes and discharge her home with a prescription for an antifungal cream to apply topically and will have her try to keep the area as clean and dry as she can. Departure - Departure Time of Disposition: 22:27 Disposition: Home, Self-Care 01 Condition: Good Clinical Impression: Skin breakdown - Discharge Information *PRESCRIPTION DRUG MONITORING PROGRAM REVIEWED*: No *COPY OF PRESCRIPTION DRUG MONITORING REPORT IN PATIENT MOSES: No Prescriptions: Miconazole [Miconazole 2% Crm] 1 applic TOP BID #1 tube Referrals: Anastacia Ambriz MD [Primary Care Provider] - Additional Instructions: You were evaluated in the ER today for the breakdown of your skin on your gluteal cleft. This does have the appearance of possible fungal skin fold infection. You have been prescribed a topical antifungal cream to apply to the area to see if this helps relieve the symptoms. Please apply this cream topically 2 times a day, until symptoms improve. This medication was electronically sent to the [facility] located on [address]. Although it does not have the appearance that the pilonidal cyst has returned, I do recommend you follow-up with the surgeon, Dr. Lockett for a more thorough evaluation. If you should develop any fevers, redness, foul-smelling drainage at the site of concern, do not hesitate to return to the ER for any clinic for ongoing management. Please try to keep the area as clean and dry as you can, you may also try topical antifungal powders to provide dryness to the area. Sepsis Event Note (ED) - Evaluation Sepsis Screening Result: No Definite Risk - Focused Exam Vital Signs: Vital Signs Temp Pulse Resp BP Pulse Ox 06/23/21 22:08 98.2 F 112 H 16 133/78 100
[2021-06-23 22:32] VITALS: BP 133/78; PULSE 112
== END 2021-06-23 22:42 | disposition home or self-care (01) ==
LOC: JD.ED 22:03
DX: L98.9 Disorder of the skin and subcutaneous tissue, unspecified (principal); E66.9 Obesity, unspecified; Z68.42 Body mass index [BMI] 45.0-49.9, adult
CPT/HCPCS: 99282; 99283

== ENCOUNTER 2023-08-06 13:23 | Emergency (ER) | payer BC, MEDICAID ==
[2023-08-06] MEDS ORDERED: Dexamethasone 10 MG/ML SDV IM ONE (14:22)
[2023-08-06 15:40] LABS: CORONAVIRUS COVID-19 NAA NEGATIVE (NEGATIVE); INFLUENZA A NAA NEGATIVE (NEGATIVE)
[2023-08-06 16:04] VITALS: BP 121/97; PULSE 82
== END 2023-08-06 16:15 | disposition home or self-care (01) ==
LOC: JD.ED 13:23
DX: J06.9 Acute upper respiratory infection, unspecified (principal); E66.9 Obesity, unspecified; Z68.41 Body mass index [BMI] 40.0-44.9, adult; Z20.822 Contact with and (suspected) exposure to COVID-19
CPT/HCPCS: 0240U; 87651-QW; 96372; 99283; J1100

== ENCOUNTER 2024-02-25 20:58 | Emergency (ER) | payer MEDICAID ==
[2024-02-25 22:21] LABS: CORONAVIRUS COVID-19 NAA NEGATIVE (NEGATIVE); INFLUENZA A NAA NEGATIVE (NEGATIVE); RESPIRATORY SYNCYTIAL VIR NAA NEGATIVE (NEGATIVE)
[2024-02-25] MEDS: Penicillin G Benzathine 1,200,000 Units/2 ML Syringe IM ONE (22:55)
[2024-02-25 23:01] VITALS: BP 124/71; PULSE 71
== END 2024-02-25 23:01 | disposition home or self-care (01) ==
LOC: JD.ED 20:58
DX: J02.0 Streptococcal pharyngitis (principal)
CPT/HCPCS: 0241U; 87651; 96372; 99283; J0561

== ENCOUNTER 2024-12-27 13:05 | Inpatient (IN) | payer SELFPAY ==
[2024-12-27] MEDS: Etomidate 2 MG/ML 20 ML SDV IVPUSH ONE (13:07)
[2024-12-27] MEDS: Succinylcholine 200 MG/10 ML MDV IV ONE (13:08)
[2024-12-27] MEDS ORDERED: Sodium Chloride 0.9% 10 ML Syringe FLUSH PRN (13:13)
[2024-12-27] MEDS: propofoL 1,000 MG/100 ML 100 ML IV SCH (13:16)
[2024-12-27] MEDS: Midazolam 1 MG/ML 5 ML SDV IVPUSH ONE (13:20)
[2024-12-27 13:24] LABS: BASOPHILS ABSOLUTE AUTO 0.1 K/mm3 (0.0-0.2); BASOPHILS PERCENT AUTO 0.4 % (0.0-1.0); EOSINOPHILS ABSOLUTE AUTO 0.7 K/mm3 (0.0-0.4); HEMATOCRIT 32.5 % (37.0-47.0); HEMOGLOBIN 11.2 gm/dl (12.0-16.0); IMMATURE GRAN ABSOLUTE AUTO 0.05 K/mm3 (0.00-0.05); IMMATURE GRAN PERCENT AUTO 0.4 % (0.0-0.4); LYMPHOCYTES ABSOLUTE AUTO 3.1 K/mm3 (1.0-4.8); LYMPHOCYTES PERCENT AUTO 23.4 % (24.0-44.0); MEAN CORPUSCULAR HEMOGLOBIN 26.9 pg (28.0-32.0); MEAN CORPUSCULAR HGB CONC 34.5 g/dl (32.0-36.0); MEAN CORPUSCULAR VOLUME 77.9 fl (83.0-99.0); MEAN PLATELET VOLUME 9.2 fl (9.4-12.3); MONOCYTES PERCENT AUTO 7.3 % (0.0-8.0); NEUTROPHILS ABSOLUTE AUTO 8.4 K/mm3 (1.8-7.7); NEUTROPHILS PERCENT AUTO 63.5 % (41.0-71.0); PLATELET COUNT,PLT 383 K/mm3 (150-400); RED BLOOD CELL COUNT 4.17 M/mm3 (4.10-5.30); WHITE BLOOD CELL COUNT,WBC 13.22 K/mm3 (3.9-11.3)
[2024-12-27] MEDS ORDERED: fentaNYL 2500 MCG in Normal Saline 250 ML IV SCH (13:30)
[2024-12-27] MEDS: fentaNYL 100 MCG/2 ML SDV IVPUSH ONE (13:31)
[2024-12-27] MEDS: fentaNYL 2,500 MCG in Sodium Chloride 0.9% 200 ML IV SCH (13:45)
[2024-12-27] MEDS: propofoL 1,000 MG/100 ML 100 ML ONE (13:52)
[2024-12-27 13:54] LABS: APPEARANCE,URINE SLT CLOUDY (Clear); BILIRUBIN,URINE NEGATIVE (Negative); COLOR,URINE LIGHT YELLOW (Yellow); GLUCOSE,URINE TRACE (Negative); KETONES,URINE NEGATIVE (Negative); LEUKOCYTE ESTERASE,URINE 1+ (Negative); NITRITE,URINE NEGATIVE (Negative); OCCULT BLOOD,URINE 2+ (Negative); PROTEIN,URINE 2+ (Negative); UROBILINOGEN,URINE 0.2 (0.2-1.0)
[2024-12-27] MEDS: Sodium Chloride 0.9% 1,000 ML IV ONE (13:56)
[2024-12-27] MEDS: Benzocaine 20% Topical Spray UD MUCMEM ONE (13:59)
[2024-12-27 14:02] LABS: A/G RATIO 0.7 (1-2); ACETAMINOPHEN 41 ug/mL (10-30); ALANINE AMINOTRANSFERASE,ALT 47 U/L (14-59); ALBUMIN 3.4 g/dl (3.4-5.0); ALKALINE PHOSPHATASE 177 U/L (46-116); ANION GAP 15.3 (5-15); ASPARTATE AMNIOTRANSFERASE,AST 31 U/L (15-37); BILIRUBIN TOTAL 0.3 mg/dL (0.2-1.0); BLOOD UREA NITROGEN,BUN 16 mg/dL (7-18); BUN/CREATININE RATIO 7.3 (14-18); CALCIUM 8.2 mg/dL (8.5-10.1); CARBON DIOXIDE,CO2 23 mEq/L (21-32); CHLORIDE,CL 105 mEq/L (98-107); CREATININE 2.2 mg/dL (0.55-1.02); ESTIMATED GFR 31 mL/min (>60); GLUCOSE RANDOM 98 mg/dL (70-99); PROTEIN TOTAL,TP 8.4 g/dl (6.4-8.2); TSH 6.304 uIU/mL (0.358-3.74)
[2024-12-27 14:05] LABS: BARBITURATE SCREEN,URINE NEGATIVE (CUTOFF=200); BENZODIAZEPINES SCREEN,URINE NEGATIVE (CUTOFF=150); BUPRENORPHINE SCREEN,URINE NEGATIVE (CUTOFF=10); METHADONE SCREEN, URINE NEGATIVE (CUTOFF=200); METHAMPHETAMINES SCREEN, URINE NEGATIVE (CUTOFF=500); OXYCODONE SCREEN,URINE NEGATIVE (CUT0FF=100); THC SCREEN,URINE 20 NG/ML NEGATIVE (CUTOFF=50)
[2024-12-27 14:09] LABS: POTASSIUM,K 2.3 mEq/L (3.5-5.1)
[2024-12-27 14:10] LABS: AMPHETAMINES SCREEN, URINE NEGATIVE (CUTOFF=500)
[2024-12-27 14:11] LABS: BACTERIA,URINE MODERATE /hpf (FEW); MUCUS,URINE FEW /hpf (FEW); RBC,URINE 30-40 /hpf (0-5)
[2024-12-27 14:30] LABS: HCG QUANTITATIVE < 1.0 mIU/mL
[2024-12-27 14:35] LABS: SODIUM,NA 141 mEq/L (136-145)
[2024-12-27] MEDS: Sodium Chloride 0.9% 1,000 ML IV SCH (14:54)
[2024-12-27] MEDS: Potassium Chloride 10 MEQ in Premix Bag 1 BAG IV SCH ×2 (14:54→21:57)
[2024-12-27] MEDS: Magnesium Sulf/Wat 2 GM/50 mL 2 GM/50 ML BAG IV ONE (14:55)
[2024-12-27] MEDS: cefTRIAXone 2 GM Vial IVPUSH ONE (14:55)
[2024-12-27 14:57] LABS: BASE EXCESS ARTERIAL -1.2 (-2-2.0); BICARBONATE,ARTERIAL 23.6 meq/L (22.0-26.0); O2 SATURATION ARTERIAL 99.6 % (96.0-97.0)
[2024-12-27] MEDS ORDERED: LORazepam 2 MG/ML SDV IVPUSH PRN (15:24)
[2024-12-27] MEDS ORDERED: hydrALAZINE 20 MG/ML SDV IVPUSH PRN (15:29)
[2024-12-27] MEDS ORDERED: Labetalol 100 MG/20 ML MDV IVPUSH PRN (15:29)
[2024-12-27] MEDS: Pantoprazole 40 MG Vial IVPUSH ONE (15:40)
[2024-12-27] MEDS ORDERED: LORazepam 2 MG/ML SDV IV PRN (15:50)
[2024-12-27] MEDS ORDERED: 50% Dextrose in Water 50 ML Syringe IVPUSH PRN (15:59)
[2024-12-27 16:24] LABS: INR 0.99; PROTHROMBIN TIME 10.5 SECONDS (9.7-12.0)
[2024-12-27 18:12] LABS: BASOPHILS ABSOLUTE AUTO 0.1 K/mm3 (0.0-0.2); BASOPHILS PERCENT AUTO 0.5 % (0.0-1.0); EOSINOPHILS ABSOLUTE AUTO 0.5 K/mm3 (0.0-0.4); EOSINOPHILS PERCENT AUTO 5.2 % (0.0-6.0); HEMATOCRIT 28.2 % (37.0-47.0); HEMOGLOBIN 9.6 gm/dl (12.0-16.0); IMMATURE GRAN ABSOLUTE AUTO 0.02 K/mm3 (0.00-0.05); IMMATURE GRAN PERCENT AUTO 0.2 % (0.0-0.4); LYMPHOCYTES ABSOLUTE AUTO 2.5 K/mm3 (1.0-4.8); LYMPHOCYTES PERCENT AUTO 26.6 % (24.0-44.0); MEAN CORPUSCULAR HEMOGLOBIN 26.6 pg (28.0-32.0); MEAN CORPUSCULAR VOLUME 78.1 fl (83.0-99.0); MEAN PLATELET VOLUME 9.5 fl (9.4-12.3); MONOCYTES ABSOLUTE AUTO 0.7 K/mm3 (0.0-0.8); MONOCYTES PERCENT AUTO 7.2 % (0.0-8.0); NEUTROPHILS ABSOLUTE AUTO 5.7 K/mm3 (1.8-7.7); NEUTROPHILS PERCENT AUTO 60.3 % (41.0-71.0); PLATELET COUNT,PLT 365 K/mm3 (150-400); RED BLOOD CELL COUNT 3.61 M/mm3 (4.10-5.30); WHITE BLOOD CELL COUNT,WBC 9.49 K/mm3 (3.9-11.3)
[2024-12-27] MEDS: Insulin Lispro 100 Unit/ML 3 ML KwikPen SUBCUT SCH (18:23)
[2024-12-27 18:24] LABS: MAGNESIUM 2.5 mg/dL (1.8-2.4)
[2024-12-27] MEDS: Heparin Sodium 5,000 Units/ML Vial SUBCUT SCH (18:26)
[2024-12-27 18:34] LABS: PHOSPHORUS 2.9 mg/dL (2.6-4.7)
[2024-12-27 21:43] LABS: A/G RATIO 0.6 (1-2); ALANINE AMINOTRANSFERASE,ALT 39 U/L (14-59); ALBUMIN 2.9 g/dl (3.4-5.0); ALKALINE PHOSPHATASE 152 U/L (46-116); ANION GAP 14.4 (5-15); ASPARTATE AMNIOTRANSFERASE,AST 26 U/L (15-37); BILIRUBIN TOTAL 0.3 mg/dL (0.2-1.0); BLOOD UREA NITROGEN,BUN 14 mg/dL (7-18); BUN/CREATININE RATIO 6.7 (14-18); CALCIUM 7.7 mg/dL (8.5-10.1); CARBON DIOXIDE,CO2 22 mEq/L (21-32); CHLORIDE,CL 109 mEq/L (98-107); CREATININE 2.1 mg/dL (0.55-1.02); ESTIMATED GFR 33 mL/min (>60); GLUCOSE RANDOM 85 mg/dL (70-99); PROTEIN TOTAL,TP 7.4 g/dl (6.4-8.2); SODIUM,NA 143 mEq/L (136-145)
[2024-12-27 21:54] LABS: POTASSIUM,K 2.4 mEq/L (3.5-5.1)
[2024-12-28] MEDS: Calcium Gluconate 10% 1 GM/10 ML SDV IV ONE (01:04)
[2024-12-28 05:29] LABS: BASOPHILS ABSOLUTE AUTO 0.1 K/mm3 (0.0-0.2); BASOPHILS PERCENT AUTO 0.5 % (0.0-1.0); EOSINOPHILS ABSOLUTE AUTO 0.6 K/mm3 (0.0-0.4); EOSINOPHILS PERCENT AUTO 6.5 % (0.0-6.0); HEMATOCRIT 26.3 % (37.0-47.0); IMMATURE GRAN ABSOLUTE AUTO 0.03 K/mm3 (0.00-0.05); IMMATURE GRAN PERCENT AUTO 0.3 % (0.0-0.4); LYMPHOCYTES ABSOLUTE AUTO 2.6 K/mm3 (1.0-4.8); LYMPHOCYTES PERCENT AUTO 28.5 % (24.0-44.0); MEAN CORPUSCULAR HEMOGLOBIN 26.7 pg (28.0-32.0); MEAN CORPUSCULAR HGB CONC 34.2 g/dl (32.0-36.0); MEAN PLATELET VOLUME 9.2 fl (9.4-12.3); MONOCYTES ABSOLUTE AUTO 0.7 K/mm3 (0.0-0.8); MONOCYTES PERCENT AUTO 7.2 % (0.0-8.0); NEUTROPHILS ABSOLUTE AUTO 5.3 K/mm3 (1.8-7.7); PLATELET COUNT,PLT 320 K/mm3 (150-400); RED BLOOD CELL COUNT 3.37 M/mm3 (4.10-5.30); WHITE BLOOD CELL COUNT,WBC 9.23 K/mm3 (3.9-11.3)
[2024-12-28 05:50] LABS: A/G RATIO 0.7 (1-2); ALANINE AMINOTRANSFERASE,ALT 36 U/L (14-59); ALBUMIN 2.7 g/dl (3.4-5.0); ALKALINE PHOSPHATASE 136 U/L (46-116); ANION GAP 13.1 (5-15); ASPARTATE AMNIOTRANSFERASE,AST 23 U/L (15-37); BILIRUBIN TOTAL 0.3 mg/dL (0.2-1.0); BLOOD UREA NITROGEN,BUN 14 mg/dL (7-18); BUN/CREATININE RATIO 6.7 (14-18); C-REACTIVE PROTEIN 1.51 mg/dL (<0.30); CALCIUM 7.9 mg/dL (8.5-10.1); CARBON DIOXIDE,CO2 23 mEq/L (21-32); CHLORIDE,CL 109 mEq/L (98-107); CREATININE 2.1 mg/dL (0.55-1.02); ESTIMATED GFR 33 mL/min (>60); GLUCOSE RANDOM 78 mg/dL (70-99); MAGNESIUM 2.1 mg/dL (1.8-2.4); PHOSPHORUS 2.3 mg/dL (2.6-4.7); PROTEIN TOTAL,TP 6.7 g/dl (6.4-8.2); SODIUM,NA 143 mEq/L (136-145)
[2024-12-28 05:56] LABS: POTASSIUM,K 2.1 mEq/L (3.5-5.1)
[2024-12-28 06:03] LABS: BASE EXCESS ARTERIAL -3.2 (-2-2.0); O2 SATURATION ARTERIAL 97.5 % (96.0-97.0)
[2024-12-28 06:03] LABS: INR 1.03; PROTHROMBIN TIME 10.9 SECONDS (9.7-12.0)
[2024-12-28] MEDS: Calcium Gluconate 10% 1 GM/10 ML SDV IVPUSH ONE (06:57)
[2024-12-28] MEDS: Potassium Chloride 10 MEQ in Premix Bag 1 BAG IV SCH (06:58)
[2024-12-28 07:26] LABS: IRON,FE 53 ug/dL (50-170); PERCENT FE SATURATION 25 % (20-55); TRANSFERRIN 169 mg/dL (202-364)
[2024-12-28 07:29] LABS: TOTAL IRON BINDING CAPACITY 211 ug/dL (100-400)
[2024-12-28] MEDS: Potassium Chloride 20 MEQ Tab.ER PO ONE ×2 (07:46→13:06)
[2024-12-28] MEDS: cefTRIAXone 1 GM Vial IVPUSH SCH (08:06)
[2024-12-28 12:07] LABS: ANION GAP 15.7 (5-15); BLOOD UREA NITROGEN,BUN 13 mg/dL (7-18); BUN/CREATININE RATIO 5.9 (14-18); CALCIUM 8.2 mg/dL (8.5-10.1); CARBON DIOXIDE,CO2 21 mEq/L (21-32); CHLORIDE,CL 110 mEq/L (98-107); CREATININE 2.2 mg/dL (0.55-1.02); ESTIMATED GFR 31 mL/min (>60); FERRITIN 181 ng/ml (8-252); GLUCOSE RANDOM 78 mg/dL (70-99); POTASSIUM,K 2.7 mEq/L (3.5-5.1); SODIUM,NA 144 mEq/L (136-145)
[2024-12-28] MEDS: Potassium Phosphates 30 MMOLE in Sodium Chloride 0.9% 500 ML IV ONE (12:20)
[2024-12-28 19:28] LABS: ANION GAP 14.7 (5-15); BUN/CREATININE RATIO 5.9 (14-18); CALCIUM 7.8 mg/dL (8.5-10.1); CREATININE 2.2 mg/dL (0.55-1.02); EST CRCL DRUG DOSING (CG) 35.48 mL/min; POTASSIUM,K 2.7 mEq/L (3.5-5.1)
[2024-12-29 05:33] LABS: HEMATOCRIT 24.8 % (37.0-47.0); HEMOGLOBIN 8.4 gm/dl (12.0-16.0); MEAN CORPUSCULAR HEMOGLOBIN 27.1 pg (28.0-32.0); MEAN CORPUSCULAR HGB CONC 33.9 g/dl (32.0-36.0); MEAN PLATELET VOLUME 9.3 fl (9.4-12.3); PLATELET COUNT,PLT 290 K/mm3 (150-400); WHITE BLOOD CELL COUNT,WBC 9.22 K/mm3 (3.9-11.3)
[2024-12-29 05:54] LABS: ANION GAP 12.2 (5-15); BUN/CREATININE RATIO 5.3 (14-18); CALCIUM 7.6 mg/dL (8.5-10.1); CREATININE 1.9 mg/dL (0.55-1.02); EST CRCL DRUG DOSING (CG) 41.08 mL/min
[2024-12-29 06:01] LABS: POTASSIUM,K 2.2 mEq/L (3.5-5.1)
[2024-12-29] MEDS: Potassium Chloride 20 MEQ Tab.ER PO ONE ×2 (06:30→11:16)
[2024-12-29] MEDS: Potassium Chloride 10 MEQ in Premix Bag 1 BAG IV SCH (06:31)
[2024-12-29] MEDS ORDERED: Acetaminophen 325 MG Tab PO PRN (07:31)
[2024-12-29 07:39] LABS: MAGNESIUM 1.5 mg/dL (1.8-2.4); PHOSPHORUS 2.9 mg/dL (2.6-4.7)
[2024-12-30 05:34] LABS: HEMATOCRIT 27.4 % (37.0-47.0); HEMOGLOBIN 9.1 gm/dl (12.0-16.0); MEAN CORPUSCULAR HEMOGLOBIN 26.6 pg (28.0-32.0); MEAN CORPUSCULAR HGB CONC 33.2 g/dl (32.0-36.0); MEAN CORPUSCULAR VOLUME 80.1 fl (83.0-99.0); MEAN PLATELET VOLUME 9.5 fl (9.4-12.3); PLATELET COUNT,PLT 298 K/mm3 (150-400); RED BLOOD CELL COUNT 3.42 M/mm3 (4.10-5.30); WHITE BLOOD CELL COUNT,WBC 8.79 K/mm3 (3.9-11.3)
[2024-12-30 06:08] LABS: ANION GAP 15.5 (5-15); BUN/CREATININE RATIO 4.7 (14-18); CALCIUM 7.8 mg/dL (8.5-10.1); CREATININE 1.7 mg/dL (0.55-1.02); EST CRCL DRUG DOSING (CG) 45.92 mL/min
[2024-12-30 06:16] LABS: POTASSIUM,K 2.5 mEq/L (3.5-5.1)
[2024-12-30] MEDS: Potassium Chloride 20 MEQ Tab.ER PO ONE ×2 (06:27→18:14)
[2024-12-30] MEDS: Potassium Chloride 10 MEQ in Premix Bag 1 BAG IV SCH (06:28)
[2024-12-30] MEDS: Magnesium Sulf/Wat 2 GM/50 mL 2 GM in Premix Bag 1 BAG IV ONE (08:14)
[2024-12-30] MEDS: Potassium Chloride 20 MEQ Tab.ER PO SCH (09:34)
[2024-12-30 16:55] LABS: ANION GAP 15.3 (5-15); BUN/CREATININE RATIO 4.1 (14-18); CALCIUM 8.2 mg/dL (8.5-10.1); CREATININE 1.7 mg/dL (0.55-1.02); EST CRCL DRUG DOSING (CG) 45.92 mL/min; POTASSIUM,K 3.3 mEq/L (3.5-5.1)
[2024-12-30 18:32] VITALS: BP 127/85; PULSE 89
== END 2024-12-30 18:25 | disposition home or self-care (01) | DRG 917 ==
LOC: JD.ED 13:05 → JD.ICU 14:49
PROVIDERS: ADMIT Student in an Organized Health Care Education/Training Program; ATTEND Family Medicine
PROC: 5A1935Z Respiratory Ventilation, Less than 24 Consecutive Hours (ICD-10-PCS; principal; 2024-12-27)
PROC: 0BH17EZ Insertion of Endotracheal Airway into Trachea, Via Natural or Artificial Opening (ICD-10-PCS; 2024-12-27)
PROC: 0DH67UZ Insertion of Feeding Device into Stomach, Via Natural or Artificial Opening (ICD-10-PCS; 2024-12-27)
DX: T43.222A Poisoning by selective serotonin reuptake inhibitors, intentional self-harm, initial encounter (principal); G92.8 Other toxic encephalopathy; J96.01 Acute respiratory failure with hypoxia; J96.92 Respiratory failure, unspecified with hypercapnia; J96.90 Respiratory failure, unspecified, unspecified whether with hypoxia or hypercapnia; R45.851 Suicidal ideations; N39.0 Urinary tract infection, site not specified; N17.9 Acute kidney failure, unspecified; F32.0 Major depressive disorder, single episode, mild; F17.290 Nicotine dependence, other tobacco product, uncomplicated; F32.A Depression, unspecified; F39 Unspecified mood [affective] disorder; E66.9 Obesity, unspecified; T48.1X2A Poisoning by skeletal muscle relaxants [neuromuscular blocking agents], intentional self-harm, initial encounter; R94.31 Abnormal electrocardiogram [ECG] [EKG]; E03.8 Other specified hypothyroidism; E87.6 Hypokalemia; E83.42 Hypomagnesemia; E86.0 Dehydration; F60.3 Borderline personality disorder; D53.9 Nutritional anemia, unspecified; Y92.89 Other specified places as the place of occurrence of the external cause; Z79.899 Other long term (current) drug therapy; Z68.37 Body mass index [BMI] 37.0-37.9, adult; Z98.890 Other specified postprocedural states
CPT/HCPCS: 31500; 36415; 36600; 51702; 70450; 70450-26; 71045; 71045-26; 80048; 80053; 80143; 80179; 80306; 80307; 81001; 82550; 82728; 82803; 82947; 83540; 83605; 83735; 84100; 84132; 84439; 84443; 84466; 84702; 85025; 85027; 85610; 86140; 87040; 87086; 93005; 93010; 94003; 94761; 96361; 96374; 99291; 99291-25; A9270-GY; J0330; J0612; J0696; J1644; J2250; J2470; J2704; J3010; J3475; J3480; J3490; J7030; J7040